=== PATIENT | male | born 1965 | race Caucasian/White ===

== ENCOUNTER 2025-05-19 05:18 | Emergency (ER) | payer OTHER ==
--- OUTSIDE RECORDS SUMMARY | 2025-05-19 05:21 | XMS REPORT | Continuity of Care Document ---
Author Name Unknown Address [address] [facility] [address] [place] [address] [facility] [place] Address [address] [facility] [address] [place] [address] Care Team Providers Care Hide And Skin Colerer Name Role Phone PCP, PATIENT DOES NOT HAVE A Primary Care Physic DR ALVINA Flores Attending Clinician Unavailable Ileana Luna MD Attending Clinician [phone] ILEANA LUNA Attending Clinician Unavailable LAVONNE VALDEZ Attending Clinician Unava ilSUMIT Rhodes Attending Clinician Unavailable Sumit Barboza Attending Clinician [phone] Unknown, Attending Attending Clinician Unavailab le UNKNOWN, ATTENDING Attending Clinician Unavailab RICO Wilson Attending Clinician Unavailable Only, Ang Db Test Attending Clinician UnavailMaci Huff RN Attending Clinician Unavailable Doctor Unassigned, Odem Attending Clinician U DR ALVINA Connell Admitting Clinician Unavailable ILEANA LUNA Admitting Clinician Unavailable Payers Payer Name Policy Type Policy Number Effective Date Expirati on Date Source [id number] 2022 00:00:00 [employer] [id number] 2022 00:00:00 2022 00:00:00 Problems Condition Name Condition Details Condition Category Status Onset Date Resolution Date Last Treatment Date Treating Clinician Comments Source Primary hypertensi on Primary hypertensi on Disease Active 2023-10 00:00: 00 [facility] Chest pain, unspecifie d type Chest pain, unspecifie d type Disease Active 2023-10 00:00: 00 [facility] Obesity (BMI 30-39.9) Obesity (BMI 30-39.9) Disease Active 2023-10 00:00: 00 [facility] No known active problems No known active problems Disease [facility] Allergies, Adverse Reactions, Alerts Allergy Name Allergy Type Status Severity Reaction(s) Onset Date Inactive Date Treating Clinician Comments Source NO KNOWN ALLERGIE S Drug Class Active [facility] Social History Social Habit Start Date Stop Date Quantity Comments [facility] use and exposure 2024-09-26 00:00:00 2024-09-26 00:00:00 Smokeless tobacco non-user [facility] History of Social function 2024-09-26 00:00:00 2024-09-26 00:00:[address] [facility] Exposure to SARS-CoV-2 (event) 2022-09-05 00:00:00 2022-09-15 14:20:[address] [facility] Sex assigned at 1965 00:00:00 1965 00:00:[address] [facility] Smoking Status Start Date Stop Date Source Tobacco smoking consumption unknown [facility] Never smoked tobacco [facility] Medications Ordered Medication Name Filled Medication Name Start Date Stop Date Current Medication? Ordering Clinician Indication Dosage Frequency Signature (SIG) Comments Components Source sulfur hexafluorid e microsphr (LUMASON) injection 5 mL 10-31 14:30: 00 10-31 14:28 :00 No [id number] 5mL 5 mL, Intravenou s, ONCE, 1 dose, On Thu10/31/24 at 0830, Routine [facility] ondansetron 4 mg disintegrat ing tablet 2021-10 00:00: 00 09-21 05:59 :00 No [id number] 4mg Take 1 tablet by mouth every 8 (eight) hours as needed for Nausea and Vomiting (N/V) for up to 5 days. [facility] Vital Signs Vital Name Observation Time Observation Value Comments S ource Oxygen saturation in Arterial blood by Pulse oximetry 2024-09-26 15:15:00 98 /min [facility] Systolic blood pressure 2024-09-26 15:15:00 138 mm[Hg] [facility] Diastolic blood pressure 2024-09-26 15:15:00 83 mm[Hg] [facility] Heart rate 2024-09-26 15:15:00 66 /min Un[facility] Body temperature 2024-09-26 15:15:[address] [facility] Respiratory rate 2024-09-26 15:15:00 17 /min [facility] Body height 2024-09-26 15:15:00 182.9 cm per pt [facility] Body weight 2024-09-26 15:15:00 121.02 kg [facility] BMI 2024-09-26 15:15:00 36.18 kg/m2 [facility] Systolic blood pressure 2022-09-15 20:30:00 135 mm[Hg] [facility] Diastolic blood pressure 2022-09-15 20:30:00 81 mm[Hg] [facility] Heart rate 2022-09-15 20:30:00 95 /min Unive [facility] Body temperature 2022-09-15 20:30:[address] [facility] Respiratory rate 2022-09-15 20:30:00 18 /min [facility] Body height 2022-09-15 20:30:00 182.9 cm [facility] Body weight 2022-09-15 20:30:00 119.704 kg [facility] BMI 2022-09-15 20:30:00 35.79 kg/m2 [facility] Oxygen saturation in Arterial blood by Pulse oximetry 2022-09-15 20:30:00 97 /min [facility] Procedures Procedure Date / Time Performed Performing Clinicia n Source HB ECG ROUTINE & RHYTHM STRIP 2024-09-26 15:19:[address] [facility] POCT MOLECULAR FLU 2022-09-15 20:33:00 Unknown, Attend ing [facility] ASSIGNMENT OF BENEFITS 2021-05-26 23:17:17 Docto r Unassigned, Odem [facility] Encounters Start Date/Time End Date/Time Encounter Type Admission Type Attending Clinicians Care Facility Care Department Encounter ID Source 2021-09-02 14:48:00 Inpatient C ALVINA [facility] [id number] [facility] 2024-11-01 00:00:00 2024-12-03 18:16:20 [facility] 1.2.840.114 350.1.13.10 4.2.7.2.686 [id number] [facility] 2024-10-31 07:50:25 2024-10-31 23:59:00 Outpatient R [facility]EREMY [facility] [id number] [facility] 2024-10-31 07:50:25 2024-10-31 23:59:00 Hospital Encounter R [facility] 1.2.840.114 350.1.13.10 4.2.7.2.686 [id number] [facility] 2024-10-20 00:00:00 2024-10-20 13:19:38 [facility] 1.2.840.114 350.1.13.10 4.2.7.2.686 [id number] [facility] 2024-10-04 00:00:00 2024-10-04 09:09:22 [facility] 1.2.840.114 350.1.13.10 4.2.7.2.686 [id number] [facility] 2024-09-26 09:20:00 2024-09-26 09:31:31 [id number] 2024-09-26 09:20:00 2024-09-26 09:31:31 Office Visit Ileana Luna [facility] 1..840.114 350.1.13.10 4.2.7.2.686 [id number] [facility] 2023-01-15 08:23:00 2023-01-15 08:23:00 Outpatient C ALVINA [facility] [id number] [facility] 2023-01-13 09:12:00 2023-01-13 10:46:00 Emergency E LAVONNE VALDEZ [facility] [address] [facility] 2022-09-15 14:20:00 2022-09-15 14:58:54 Outpatient R SUMIT WINSLOW [facility] [id number] [facility] 2022-09-15 14:20:00 2022-09-15 14:40:00 Urgent Care Sumit Winslow Unknown, Attending [facility] 1..840.114 350.1.13.10 4.2.7.2.686 [id number] [facility] 2021-09-19 16:00:00 2021-09-19 16:00:00 Outpatient R UNKNOWN, ATTENDING [facility] [id number] [facility] 2021-09-19 13:15:00 2021-09-19 13:40:36 Outpatient R RICO LOPEZ [facility] [id number] [facility] 2021-09-19 13:15:00 2021-09-19 13:30:00 Laboratory Only Only, Ang Db Test Unknown, Attending [facility] 1.2.840.114 350.1.13.10 4.2.7.2.686 [id number] [facility] 2021-08-22 12:46:00 2021-08-22 23:59:00 Outpatient C ALVINA [facility] [id number] [facility] 2021-05-28 00:00:00 2021-05-28 00:00:00 Letter (Out) Maci Cunningham [facility] 1.2.840.114 350.1.13.10 4.2.7.2.686 [id number] [facility] 2021-05-26 18:30:00 2021-05-26 18:30:00 Outpatient R UNKNOWN, ATTENDING [facility] [id number] [facility] 2021-05-26 00:00:00 2021-05-26 00:00:00 Letter (Out) Doctor Unassigned, Odem [facility] 1.2.840.114 350.1.13.10 4.2.7.2.686 [id number] [facility] 2021-05-26 00:00:00 2021-05-26 00:00:00 Orders Only Doctor Unassigned, Odem [facility] 1.2.840.114 350.1.13.10 4.2.7.2.686 [id number] [facility] Results Test Description Test Time Test Comments Results Result Co mments Source [facility] Notes Date/Time Note Provider Source 2024-10-20 12:57:18 Brian Reyes is a 59 year old male Kelsie with medical helpline calling to inform clinic that no auth is needed for the echo Ph [id number] ИРИНА Finn [facility] 2024-10-04 09:08:46 Called and left a voicemail for patient to contact us for scheduling TTE ИРИНА Bhat [facility] 2024-10-04 09:05:37 Pt states he is ready to schedule his echo. Dr. Luna has placed orders. Will forward to PSS to assist pt with scheduling echo. ИРИНА Conner RN [facility] 2024-10-04 08:43:29 Ordered [facility] 2024-10-04 08:16:19 Brian Reyes is a 59 year old male Patient would like to go ahead and have orders placed for echo now - Please advise [facility] Beba Nelson [facility] 2024-09-26 09:20:00 Addended by: ILEANA LUNA MD on: 10/04/2024 08:43 AM Modules accepted: Orders [facility]
[2025-05-19 05:33] LABS: Absolute Lymphocytes (CBC) 1.5 K/uL (0.7-4.9); Hematocrit 51.0 % (39.6-49.0); Hemoglobin 17.8 g/dL (13.6-17.9); MCH 30.5 pg (27.0-35.0); MCHC 34.9 g/dL (32.0-36.0); MCV 87.4 fL (80-100); MPV 8.7 fL (7.6-11.3); Nucleated RBC Absolute Count 0.0 (0-0); Nucleated Red Blood Cells % 0.1 % (0-0); RBC Red Blood Cell Count 5.83 M/uL (4.33-5.43); White Blood Count 8.10 thou/uL (4.3-10.9)
[2025-05-19 05:40] LABS: PT Prothrombin Time 11.9 SECONDS (10-13.0); PTT, Activated Partial Thromb 32.9 SECONDS (27.2-37.4); Protime INR 1.05
[2025-05-19] MEDS ORDERED: LABETALOL 20 MG/4ML SYRINGE IV ONE (05:47)
[2025-05-19] MEDS ORDERED: TENECTEPLASE 50 MG/10 ML VIAL IV ONE (05:47)
--- NOTE | 2025-05-19 06:05 | RAD REPORT ---
ADDENDUM #1 The negative findings were communicated with Dr. Faustino Thompson at 05/19/2025 6:03 AM CDT. Electronically signed by: Joan Travis MD 05/19/2025 06:31 AM CDT RP End of Addendum CT HEAD WITHOUT IV CONTRAST, CT HEAD ANGIOGRAPHY WITH IV CONTRAST, CT NECK ANGIOGRAPHY WITH IV CONTRA ST CLINICAL INDICATION: Stroke alert COMPARISON: None. TECHNIQUE: CT HEAD: CT images of the head were obtained without intravenous contrast. Multiplanar reformats were provided. CTA HEAD/NECK: Following intravenous contrast administration, helical CT images were obtained through the head and neck during the arterial phase. Multiplanar 3D/MIP and MPR reconstructions were provided. Dose lowering technique(s) such as automated exposure control, iterative reconstruction, mA and/or KV adjustment for patient's size was utilized for this examination. FINDINGS: CT HEAD: There is no acute intracranial hemorrhage, acute territorial infarct, mass effect, midline shift or e xtra-axial collection. Ventricles are normal in size for patient's age. No acute calvarial fracture. Paranasal sinuses, mastoid air cells and middle ear cavities are clear. Orbits are unremarkable. CTA HEAD: POSTERIOR CIRCULATION: Vertebral artery dominance: Codominant Right vertebral artery: No significant stenosis. No aneurysm. Left vertebral artery: No significant stenosis. No aneurysm. Basilar artery: No significant stenosis. No aneurysm. Posterior cerebral arteries: No significant stenosis. No aneurysm. Superior cerebellar arteries: Unremarkable ANTERIOR CIRCULATION: Right ICA: No significant stenosis. No aneurysm. Right MCA: No significant stenosis. No aneurysm. Right SHERYL: No significant stenosis. No aneurysm. Left ICA: No significant stenosis. No aneurysm. Left MCA: No significant stenosis. No aneurysm. Left SHERYL: No significant stenosis. No aneurysm. CTA NECK: Aortic arch: Aortic arch and proximal major branching vessels are not included in [id number]-[id number]. Vertebral arteries: Preforaminal segments are not included in [id number]. No hemodynamically signi ficant stenosis. No aneurysm or dissection. Right CCA: No hemodynamically significant stenosis. No aneurysm or dissection. Right ICA: No hemodynamically significant stenosis. No aneurysm or dissection. Right ECA: No aneurysm or dissection. Left CCA: No hemodynamically significant stenosis. No aneurysm or dissection. Left ICA: No hemodynamically significant stenosis. No aneurysm or dissection. Left ECA: No aneurysm or dissection. Measurement of carotid stenosis is based on criteria described in the [place] Symptomatic Naik tid Endarterectomy Trial (NASCET). NASCET criteria for estimating stenosis compares the normal distal ICA diameter with the standard proximal ICA diameter. UPPER CHEST: Unremarkable. BONES: No acute or destructive osseous lesion. Status post previous cervical fusion of C5-6. SOFT TISSUES: Unremarkable. OTHER: None. IMPRESSION: 1. No acute intracranial abnormality. 2. Negative CTA of the head and neck. Electronically signed by: Joan Travis MD 05/19/2025 06:00 AM CDT RP Due to temporary technical issues with the PACS/[employer] reporting system, reports are being ifrah d by the in-house radiologist without review as a courtesy to ensure prompt reporting the interpreting radiologist is fully responsible for the content of the report. Transcribed Date/Time: 05/19/2025 6:35 AM
--- NOTE | 2025-05-19 06:05 | RAD REPORT ---
ADDENDUM #1 The negative findings were communicated with Dr. Faustino Thompson at 05/19/2025 6:03 AM CDT. Electronically signed by: Joan Travis MD 05/19/2025 06:31 AM CDT RP End of Addendum CT HEAD WITHOUT IV CONTRAST, CT HEAD ANGIOGRAPHY WITH IV CONTRAST, CT NECK ANGIOGRAPHY WITH IV CONTRA ST CLINICAL INDICATION: Stroke alert COMPARISON: None. TECHNIQUE: CT HEAD: CT images of the head were obtained without intravenous contrast. Multiplanar reformats were provided. CTA HEAD/NECK: Following intravenous contrast administration, helical CT images were obtained through the head and neck during the arterial phase. Multiplanar 3D/MIP and MPR reconstructions were provided. Dose lowering technique(s) such as automated exposure control, iterative reconstruction, mA and/or KV adjustment for patient's size was utilized for this examination. FINDINGS: CT HEAD: There is no acute intracranial hemorrhage, acute territorial infarct, mass effect, midline shift or e xtra-axial collection. Ventricles are normal in size for patient's age. No acute calvarial fracture. Paranasal sinuses, mastoid air cells and middle ear cavities are clear. Orbits are unremarkable. CTA HEAD: POSTERIOR CIRCULATION: Vertebral artery dominance: Codominant Right vertebral artery: No significant stenosis. No aneurysm. Left vertebral artery: No significant stenosis. No aneurysm. Basilar artery: No significant stenosis. No aneurysm. Posterior cerebral arteries: No significant stenosis. No aneurysm. Superior cerebellar arteries: Unremarkable ANTERIOR CIRCULATION: Right ICA: No significant stenosis. No aneurysm. Right MCA: No significant stenosis. No aneurysm. Right SHERYL: No significant stenosis. No aneurysm. Left ICA: No significant stenosis. No aneurysm. Left MCA: No significant stenosis. No aneurysm. Left SHERYL: No significant stenosis. No aneurysm. CTA NECK: Aortic arch: Aortic arch and proximal major branching vessels are not included in hmfub-vi-ygyr. Vertebral arteries: Preforaminal segments are not included in jqshj-ke-xtmp. No hemodynamically signi ficant stenosis. No aneurysm or dissection. Right CCA: No hemodynamically significant stenosis. No aneurysm or dissection. Right ICA: No hemodynamically significant stenosis. No aneurysm or dissection. Right ECA: No aneurysm or dissection. Left CCA: No hemodynamically significant stenosis. No aneurysm or dissection. Left ICA: No hemodynamically significant stenosis. No aneurysm or dissection. Left ECA: No aneurysm or dissection. Measurement of carotid stenosis is based on criteria described in the [place] Symptomatic Naik tid Endarterectomy Trial (NASCET). NASCET criteria for estimating stenosis compares the normal distal ICA diameter with the standard proximal ICA diameter. UPPER CHEST: Unremarkable. BONES: No acute or destructive osseous lesion. Status post previous cervical fusion of C5-6. SOFT TISSUES: Unremarkable. OTHER: None. IMPRESSION: 1. No acute intracranial abnormality. 2. Negative CTA of the head and neck. Electronically signed by: Joan Travis MD 05/19/2025 06:00 AM CDT RP Due to temporary technical issues with the PACS/[employer] reporting system, reports are being ifrah d by the in-house radiologist without review as a courtesy to ensure prompt reporting the interpreting radiologist is fully responsible for the content of the report. Transcribed Date/Time: 05/19/2025 6:35 AM
[2025-05-19 06:07] LABS: Anion Gap 7.1 mEq/L (5.0-15.0); BUN Blood Urea Nitrogen 15.0 mg/dL (7-18); Glucose Level 116.0 mg/dL (74-106); Potassium 4.1 mEq/L (3.5-5.1); Troponin High Sensitivity 3.7 pg/mL (<58.9)
--- NOTE | 2025-05-19 06:26 | EDPHYS ---
Physician Documentation [facility] Name: Brian Ivory Age: 59 yrs Sex: Male : 1965 Arrival Date: 05/19/2025 Time: :18 Bed 2 Private MD: ED Physician Faustino Thompson HPI: 05/19 05:36 This 59 yrs old Male presents to ER via Unassigned with complaints of weakness. 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 Patient reports does not feel right and still has left arm and left leg weakness. No numbness. No speech problem. No vision trouble. Patient states sudden onset of symptoms approximately 1 hour prior to arrival. Historical: - Allergies: 05:52 No Known Allergies; bm8 - Home Meds: 05:52 amlodipine-valsartan oral 1 tab daily [Active]; bm8 - PMHx: 05:52 Hypertensive disorder; bm8 - PSHx: 05:52 None; bm8 - Immunization history:: Adult Immunizations up to date. - Infectious Disease History:: Denies. - Family history:: not pertinent. - Social history:: Smoking status: Patient denies any tobacco usage or history of. - Hospitalizations: : No recent hospitalization is reported. ROS: 05:36 Constitutional: Negative for fever, chills, and weight loss, Neck: Negative for injury, rn pain, and swelling, Cardiovascular: Negative for chest pain, palpitations, and edema, Respiratory: Negative for shortness of breath, cough, wheezing, and pleuritic chest pain, Abdomen/GI: Negative for abdominal pain, nausea, vomiting, diarrhea, and constipation, Back: Negative for injury and pain, MS/Extremity: Negative for injury and deformity, Skin: Negative for injury, rash, and discoloration, Neuro: Positive for left-sided weakness, negative for numbness Exam: 05:36 Constitutional: This is a well developed, well nourished patient who is awake, alert, rn and in no acute distress. Head/Face: Normocephalic, atraumatic. Eyes: Pupils equal round and reactive to light, extra-ocular motions intact. Cardiovascular: Regular rate and rhythm. No pulse deficits. Respiratory: No increased work of breathing, no retractions or nasal flaring. Abdomen/GI: Soft, non-tender MS/ Extremity: Pulses equal, no cyanosis. Neurovascular intact. Full, normal range of motion. Equal circumference. Neuro: Awake and alert, GCS 15, oriented to person, place, time, and situation. Cranial nerves II-XII grossly intact. Left upper extremity and left lower extremity drift with weakness but does not hit the bed. Normal sensation throughout. Normal right sided strength. 06:00 ECG was reviewed by the Attending Physician. rn Vital Signs: 05:20 BP 186 / 112; Pulse 80; Resp 18; Temp 98.5; Pulse Ox 99% ; Weight 117.03 kg; Height 6 bm8 ft. 1 in. ; Pain 0/10; 05:58 BP 144 / 87; rn 06:30 BP 136 / 95; Pulse 67; Resp 17; Temp 98.5; Pulse Ox 97% ; Pain 0/10; bm8 06:33 BP 136 / 95; rn 06:45 BP 140 / 88; Pulse 70; Resp 18; Temp 98.5; Pulse Ox 98% ; Pain 0/10; bm8 07:00 BP 129 / 88; Pulse 69; Resp 18; Temp 98.5; Pulse Ox 98% ; Pain 0/10; bm8 07:15 BP 128 / 85; Pulse 64; Resp 17; Temp 98.5; Pulse Ox 99% ; Pain 0/10; bm8 05:20 Body Mass Index 34.04 (117.03 kg, 185.42 cm) bm8 05:20 Pain Scale: Adult bm8 06:30 Pain Scale: Adult bm8 06:45 Pain Scale: Adult bm8 07:00 Pain Scale: Adult bm8 07:15 Pain Scale: Adult bm8 NIH Stroke Scale Scores: 05:22 NIHSS Score: 1 bm8 05:36 NIHSS Score: 2 rn 06:30 NIHSS Score: 0 bm8 06:45 NIHSS Score: 0 bm8 07:00 NIHSS Score: 0 bm8 07:15 NIHSS Score: 0 bm8 Alfa Coma Score: 05:22 Eye Response: spontaneous(4). Motor Response: obeys commands(6). Verbal Response: bm8 oriented(5). Total: 15. 06:30 Eye Response: spontaneous(4). Motor Response: obeys commands(6). Verbal Response: bm8 oriented(5). Total: 15. 06:30 Eye Response: spontaneous(4). Motor Response: obeys commands(6). Verbal Response: bm8 oriented(5). Total: 15. 06:45 Eye Response: spontaneous(4). Motor Response: obeys commands(6). Verbal Response: bm8 oriented(5). Total: 15. 07:00 Eye Response: spontaneous(4). Motor Response: obeys commands(6). Verbal Response: bm8 oriented(5). Total: 15. 07:15 Eye Response: spontaneous(4). Motor Response: obeys commands(6). Verbal Response: bm8 oriented(5). Total: 15. MDM: 05:20 Medical Screening Exam initiated rn 06:01 Discussion of test interpretation with radiology: I had a discussion with cath lab radiology technician regarding a test interpretation. Case discussed with radiologist, ct head negative for acute hemorrhage. 06:03 ED course: Had a long discussion with patient and spouse regarding TNKase. They are rn deciding right now and being consented. Repeat blood pressure was 144/87. Still has left-sided weakness. Given sudden onset and within TNK window decision made to give TNK. 06:14 ED course: Delay of TNKase administration due to time to read CT as well as family and rn patient took a while to discuss TNKase and finally agreed. Patient, spouse, and children all agree to receive TNKase and understand risks and benefits. . 06:15 TNKase (Tenecteplase) Screening: Indications: Definite evidence of stroke, ischemic, rn embolic, or hypertensive: Yes. Treatment will start within 4.5 hours onset of symptoms: Yes. No evidence of intracranial hemorrhage or CT of head and no evidence of peripheral hemorrhage or recent CVA: Yes. Consent for thrombolytic therapy: Yes. 06:24 Differential diagnosis: CVA, TIA, metabolic disorder. Data reviewed: vital signs, rn nurses notes, lab test result(s), EKG, radiologic studies, CT scan, and as a result, I will admit patient. Consideration of Admission/Observation Patient was admitted/placed on observation. Escalation of care including admission/observation considered. Independent interpretation of the following test(s) in the Emergency Department CT Scan: My interpretation is CT head images negative for acute hemorrhage per my interpretation. Care significantly affected by the following chronic conditions: Hypertension. Counseling: I had a detailed discussion with the patient and/or guardian regarding the historical points, exam findings, and any diagnostic results supporting the discharge/admit diagnosis, lab results, radiology results, the need for further work-up and treatment in the hospital, the need to transfer to another facility, for higher level of care, [facility] does not immediately have the required specialist. 06:27 Test considered but Not performed: MRI: MRI not available. rn 05/19 05:23 Order name: glucometer results - FOR PT WITH NO ID; Complete Time: 05:57 vc1 05/19 05:28 Order name: Basic Metabolic Panel; Complete Time: 06:31 rn 05/19 05:28 Order name: CBC with Diff rn 05/19 05:28 Order name: High Sensitivity Troponin; Complete Time: 06:31 rn 05/19 05:28 Order name: Protime (+inr); Complete Time: 05:57 rn 05/19 05:28 Order name: Ptt, Activated; Complete Time: 05:57 rn 05/19 06:05 Order name: CREATININE WHOLE BLOOD; Complete Time: 06:31 EDMS 05/19 05:28 Order name: CT Head Angio rn 05/19 05:28 Order name: CT Neck Angio rn 05/19 05:28 Order name: CT Stroke Brain w/o Contrast rn 05/19 05:28 Order name: Stroke CXR 1 View rn 05/19 05:28 Order name: Accucheck; Complete Time: 06:20 rn 05/19 05:28 Order name: Cardiac monitoring; Complete Time: 06:20 rn 05/19 05:28 Order name: EKG - Nurse/Tech; Complete Time: 05:36 rn 05/19 05:28 Order name: IV Saline Lock; Complete Time: 06:20 rn 05/19 05:28 Order name: Labs collected and sent; Complete Time: 06:21 rn 05/19 05:28 Order name: NPO; Complete Time: 06:21 rn 05/19 05:28 Order name: O2 Per Protocol; Complete Time: 06:21 rn 05/19 05:28 Order name: O2 Sat Monitoring; Complete Time: 06:21 rn 05/19 05:28 Order name: Stroke Swallow Screen; Complete Time: 06:21 rn EC:00 Rate is 80 beats/min. Rhythm is regular. QRS Hurst is Normal. NE interval is normal. QRS rn interval is normal. QT interval is normal. No Q waves. T waves are Normal. No ST changes noted. Clinical impression: Normal ECG. Interpreted by me. Reviewed by me. Administered Medications: 05:45 Not Given (BP improved): labetalol5 mg IV at calculated rate once rn 06:18 Drug: TNK FOR STROKE - Tenecteplase IV (Administer 10 ml NS flush BEFORE and bm8 AFTER tenecteplase) 0.25 mg/kg IV at per protocol once; 0.25mg/kg, MAX DOSE 25 mg, IVP over 5 seconds {Co-Signature: vc1 (Edith Collins RN).} Route: IV; Rate: per protocol; Site: left antecubital; 07:23 Follow up: Response: No adverse reaction; IV Status: Completed infusion bm8 Point of Care Testing: Blood Glucose: 05:20 Blood Glucose: 112 mg/dL; bm8 Ranges: Critical Glucose Levels:Adult <50 mg/dl or >400 mg/dl <40 mg/dl or >180 mg/dl Disposition Summary: 05/19/25 06:25 Transfer Ordered Notes: Transfer Location: [facility] rn Reason: Higher level of care rn Condition: Stable rn Problem: new rn Symptoms: are unchanged rn Accepting Physician: (05/19/25 07:29) bm8 Diagnosis - Weakness rn - Cerebral infarction, unspecified rn Forms: - Medication Reconciliation Form rn - SBAR form recovery room rn time excluding procedures: 06:24 Critical care time: Bedside Care: 30 minutes, Family Intervention: 5 minutes. Total rn time: 35 minutes NIH Stroke Scale - NIH Stroke Score Date: 05/19/2025 Time: 05:22 Total Score = 1 10. Dysarthria (speech clarity - read or repeat words) - 0(Normal) 11. Extinction and Inattention (visual/tactile/auditory/spatial/personal) - 0(No abnormality) 1a. Level of Consciousness (LOC) - 0(Alert) 1b. Level of Consciousness (LOC) (Month \T\ Age) - 0(Both) 1c. LOC Commands (Open \T\ Closes Eyes/Salad Counter Attendant) - 0(Both) 2. Best Gaze (Lateral Gaze Paresis) - 0(Normal) 3. Visual Field Loss - 0(No visual loss) 4. Facial Palsy - 0(Normal) 5a. Left Arm: Motor (10-second hold) - 0(No drift) 5b. Right Arm: Motor (10-second hold) - 0(No drift) 6a. Left Leg: Motor (5-second hold - always test supine) - 0(No drift) 6b. Right Leg: Motor (5-second hold - always test supine) - 0(No drift) 7. Limb Ataxia (finger/nose \T\ heel/cheung - test with eyes open) - 0(Absent) 8. Sensory Loss (pinprick arms/legs/face) - 1(Mild to moderate loss) 9. Best Language: Aphasia (description/naming/reading) - 0(No aphasia) Initials: bm8 NIH Stroke Scale - NIH Stroke Score Date: 05/19/2025 Time: 05:36 Total Score = 2 10. Dysarthria (speech clarity - read or repeat words) - 0(Normal) 11. Extinction and Inattention (visual/tactile/auditory/spatial/personal) - 0(No abnormality) 1a. Level of Consciousness (LOC) - 0(Alert) 1b. Level of Consciousness (LOC) (Month \T\ Age) - 0(Both) 1c. LOC Commands (Open \T\ Closes Eyes/Salad Counter Attendant) - 0(Both) 2. Best Gaze (Lateral Gaze Paresis) - 0(Normal) 3. Visual Field Loss - 0(No visual loss) 4. Facial Palsy - 0(Normal) 5a. Left Arm: Motor (10-second hold) - 1(Drift) 5b. Right Arm: Motor (10-second hold) - 0(No drift) 6a. Left Leg: Motor (5-second hold - always test supine) - 1(Drift) 6b. Right Leg: Motor (5-second hold - always test supine) - 0(No drift) 7. Limb Ataxia (finger/nose \T\ heel/cheung - test with eyes open) - 0(Absent) 8. Sensory Loss (pinprick arms/legs/face) - 0(Normal) 9. Best Language: Aphasia (description/naming/reading) - 0(No aphasia) Initials: rn NIH Stroke Scale - NIH Stroke Score Date: 05/19/2025 Time: 06:30 Total Score = 0 10. Dysarthria (speech clarity - read or repeat words) - 0(Normal) 11. Extinction and Inattention (visual/tactile/auditory/spatial/personal) - 0(No abnormality) 1a. Level of Consciousness (LOC) - 0(Alert) 1b. Level of Consciousness (LOC) (Month \T\ Age) - 0(Both) 1c. LOC Commands (Open \T\ Closes Eyes/Salad Counter Attendant) - 0(Both) 2. Best Gaze (Lateral Gaze Paresis) - 0(Normal) 3. Visual Field Loss - 0(No visual loss) 4. Facial Palsy - 0(Normal) 5a. Left Arm: Motor (10-second hold) - 0(No drift) 5b. Right Arm: Motor (10-second hold) - 0(No drift) 6a. Left Leg: Motor (5-second hold - always test supine) - 0(No drift) 6b. Right Leg: Motor (5-second hold - always test supine) - 0(No drift) 7. Limb Ataxia (finger/nose \T\ heel/cheung - test with eyes open) - 0(Absent) 8. Sensory Loss (pinprick arms/legs/face) - 0(Normal) 9. Best Language: Aphasia (description/naming/reading) - 0(No aphasia) Initials: bm8 NIH Stroke Scale - NIH Stroke Score Date: 05/19/2025 Time: 06:45 Total Score = 0 10. Dysarthria (speech clarity - read or repeat words) - 0(Normal) 11. Extinction and Inattention (visual/tactile/auditory/spatial/personal) - 0(No abnormality) 1a. Level of Consciousness (LOC) - 0(Alert) 1b. Level of Consciousness (LOC) (Month \T\ Age) - 0(Both) 1c. LOC Commands (Open \T\ Closes Eyes/Salad Counter Attendant) - 0(Both) 2. Best Gaze (Lateral Gaze Paresis) - 0(Normal) 3. Visual Field Loss - 0(No visual loss) 4. Facial Palsy - 0(Normal) 5a. Left Arm: Motor (10-second hold) - 0(No drift) 5b. Right Arm: Motor (10-second hold) - 0(No drift) 6a. Left Leg: Motor (5-second hold - always test supine) - 0(No drift) 6b. Right Leg: Motor (5-second hold - always test supine) - 0(No drift) 7. Limb Ataxia (finger/nose \T\ heel/cheung - test with eyes open) - 0(Absent) 8. Sensory Loss (pinprick arms/legs/face) - 0(Normal) 9. Best Language: Aphasia (description/naming/reading) - 0(No aphasia) Initials: [facility] NIH Stroke Scale - NIH Stroke Score Date: 05/19/2025 Time: 07:00 Total Score = 0 10. Dysarthria (speech clarity - read or repeat words) - 0(Normal) 11. Extinction and Inattention (visual/tactile/auditory/spatial/personal) - 0(No abnormality) 1a. Level of Consciousness (LOC) - 0(Alert) 1b. Level of Consciousness (LOC) (Month \T\ Age) - 0(Both) 1c. LOC Commands (Open \T\ Closes Eyes/Salad Counter Attendant) - 0(Both) 2. Best Gaze (Lateral Gaze Paresis) - 0(Normal) 3. Visual Field Loss - 0(No visual loss) 4. Facial Palsy - 0(Normal) 5a. Left Arm: Motor (10-second hold) - 0(No drift) 5b. Right Arm: Motor (10-second hold) - 0(No drift) 6a. Left Leg: Motor (5-second hold - always test supine) - 0(No drift) 6b. Right Leg: Motor (5-second hold - always test supine) - 0(No drift) 7. Limb Ataxia (finger/nose \T\ heel/hceung - test with eyes open) - 0(Absent) 8. Sensory Loss (pinprick arms/legs/face) - 0(Normal) 9. Best Language: Aphasia (description/naming/reading) - 0(No aphasia) Initials: 8 NIH Stroke Scale - NIH Stroke Score Date: 05/19/2025 Time: 07:15 Total Score = 0 10. Dysarthria (speech clarity - read or repeat words) - 0(Normal) 11. Extinction and Inattention (visual/tactile/auditory/spatial/personal) - 0(No abnormality) 1a. Level of Consciousness (LOC) - 0(Alert) 1b. Level of Consciousness (LOC) (Month \T\ Age) - 0(Both) 1c. LOC Commands (Open \T\ Closes Eyes/Salad Counter Attendant) - 0(Both) 2. Best Gaze (Lateral Gaze Paresis) - 0(Normal) 3. Visual Field Loss - 0(No visual loss) 4. Facial Palsy - 0(Normal) 5a. Left Arm: Motor (10-second hold) - 0(No drift) 5b. Right Arm: Motor (10-second hold) - 0(No drift) 6a. Left Leg: Motor (5-second hold - always test supine) - 0(No drift) 6b. Right Leg: Motor (5-second hold - always test supine) - 0(No drift) 7. Limb Ataxia (finger/nose \T\ heel/cheung - test with eyes open) - 0(Absent) 8. Sensory Loss (pinprick arms/legs/face) - 0(Normal) 9. Best Language: Aphasia (description/naming/reading) - 0(No aphasia) Initials: shanya Signatures: Dispatcher [employer] EDMS Faustino Thompson MD MD rn McDonald, Brad, RN RN bm8 CalcEdith laureano RN vc1 Corrections: (The following items were deleted from the chart) 05:29 05:29 Head Angio+CT.RAD.BRZ ordered. EDSD EDMS 05:29 05:29 Neck Angio+CT.RAD.BRZ ordered. EDSD EDSD 05:29 05:29 CT-STROKE BRAIN W/O CONTRAST+CT.RAD.BRZ ordered. EDSD EDMS 05:29 05:29 Chest Single View+RAD.RAD.BRZ ordered. 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 Patient reports does not feel right and still has left arm and left leg weakness. No numbness. No speech problem. No vision trouble.. rn : 06:25 Dr. peter [email or web address]
--- NOTE | 2025-05-19 06:26 | ER ---
Nurse's Notes [facility] Name: Brian Ivory Age: 59 yrs Sex: Male : 1965 Arrival Date: 05/19/2025 Time: 05:18 Bed 2 Private MD: Diagnosis: Weakness;Cerebral infarction, unspecified Presentation: 05/19 05:20 Chief complaint: Patient states: I was on my way to work and wasn't feeling good at bm8 all. My left side feels weak and numb, my back where my kidneys are is hurting too. 05:20 Coronavirus screen: At this time, the client does not indicate any symptoms associated bm8 with coronavirus-19. Ebola Screen: Patient negative for fever greater than or equal to 101.5 degrees Fahrenheit, and additional compatible Ebola Virus Disease symptoms Patient denies exposure to infectious person. Patient denies travel to an Ebola-affected area in the 21 days before illness onset. No symptoms or risks identified at this time. Initial Sepsis Screen: Does the patient meet any 2 criteria? No. Patient's initial sepsis screen is negative. Does the patient have a suspected source of infection? No. Patient's initial sepsis screen is negative. Risk Assessment: Do you want to hurt yourself or someone else? Patient reports no desire to harm self or others. Onset of symptoms was May 19, 2025 at 04:15. 05:20 Method Of Arrival: Ambulatory bm8 05:20 Acuity: EVELIN 2 bm8 05:21 No acute neurological deficit is noted. Pre-hospital glucose is not applicable to this bm8 patient. Triage Assessment: 05:20 General: Appears in no apparent distress. comfortable, Behavior is calm, cooperative, bm8 appropriate for age. 05:20 Pain: Denies pain. EENT: No deficits noted. No signs and/or symptoms were reported bm8 regarding the EENT system. Neuro: Level of Consciousness is awake, alert, obeys commands, Oriented to person, place, time, situation, Appropriate for age Application Security Developer are equal bilaterally Moves all extremities. Full function Gait is steady, Speech is normal, Facial symmetry appears normal, Pupils are PERRLA, Pupil Size: 4mm Numbness in left arm and left leg. Cardiovascular: Denies chest pain, Capillary refill < 3 seconds in bilateral fingers Patient's skin is warm and dry. Respiratory: Airway is patent Respiratory effort is even, unlabored, Respiratory pattern is regular, symmetrical, Breath sounds are clear bilaterally. GI: Abdomen is round non-distended, Bowel sounds present X 4 quads. Reports upper abdominal pain. : Reports pain in bilateral flank(s). Derm: No signs and/or symptoms reported regarding the dermatologic system. Musculoskeletal: No signs and/or symptoms reported regarding the musculoskeletal system. 05:20 The onset of the patients symptoms was May 19, 2025 at 04:15. bm8 Stroke Activation: Symptom onset < 3 hours Physician: ED Attending; Name: KAILASH; Notified At: ; Arrived At: Physician: Mid-Level Provider; Name: ; Notified At: ; Arrived At: Physician: [not used]; Name: ; Notified At: ; Arrived At: Physician: [not used]; Name: ; Notified At: ; Arrived At: Physician: [not used]; Name: ; Notified At: ; Arrived At: Historical: - Allergies: 05:52 No Known Allergies; bm8 - Home Meds: 05:52 amlodipine-valsartan oral 1 tab daily [Active]; bm8 - PMHx: 05:52 Hypertensive disorder; bm8 - PSHx: 05:52 None; bm8 - Immunization history:: Adult Immunizations up to date. - Infectious Disease History:: Denies. - Family history:: not pertinent. - Social history:: Smoking status: Patient denies any tobacco usage or history of. - Hospitalizations: : No recent hospitalization is reported. Screenin:22 [facility] ED Fall Risk Assessment (Adult) History of falling in the last 3 months, bm8 including since admission No falls in past 3 months (0 pts) Confusion or Disorientation No (0 pts) Intoxicated or Sedated No (0 pts) Impaired Gait No (0 pts) Mobility Assist Device Used No (0 pt) Altered Elimination No (0 pt) Score/Fall Risk Level 0 - 2 = Low Risk Oriented to surroundings, Maintained a safe environment, Educated pt \T\ family on fall prevention, incl call for assistance when getting out of bed, Assessed \T\ reinforced patient's understanding of fall precautions, Hourly rounding (assess needs \T\ fall precautionary measures) done, Used ambulatory aids as needed (educated on \T\ assisted with), Used gait belt as appropriate. Abuse screen: Denies threats or abuse. Nutritional screening: No deficits noted. Tuberculosis screening: No symptoms or risk factors identified. Assessment: 05:22 VAN Scoring: Arm Drift: Patients demonstrates NO arm weakness. Patient is VAN Negative. bm8 Visual Disturbance: No visual disturbance noted. Aphasia: No aphasia noted. Neglect: No neglect noted. Thelma Swallow Protocol Exclusion Criteria: Unable to remain alert for testing: No NPO for medical/surgical reason by provider order No Tracheostomy tube present No No thin liquids due to preexisting dysphagia/baseline modified diet thickened liquids No Exclusion Criteria Result: Proceed Brief Cognitive Screen What is your name? Normal, Where are you right now? Normal, What year is it? Normal. Oral Mechanism Examination Facial Symmetry: Normal, Motion: Normal, Lip Closure: Normal, Oral Mechanism Result: Normal. 3 oz Water Swallow Challenge: Pt able to drink all water without stopping, coughing, choking or throat clearing: Yes Result: PASS MD Notified: Faustino Thompson MD. TNKase (Tenecteplase) Screening: Indications: Definite evidence of stroke, ischemic, embolic, or hypertensive: Yes. Treatment will start within 4.5 hours onset of symptoms: Yes. 06:00 GI: Abd is soft and non tender. bm8 06:30 Reassessment: Patient appears in no apparent distress at this time. No changes from bm8 previously documented assessment. Patient is alert, oriented x 3, equal unlabored respirations, skin warm/dry/pink. Patient denies pain at this time. Patient states feeling better. Patient states symptoms have improved. 06:45 Reassessment: Patient appears in no apparent distress at this time. Patient and/or bm8 family updated on plan of care and expected duration. Pain level reassessed. Patient is alert, oriented x 3, equal unlabored respirations, skin warm/dry/pink. Patient denies pain at this time. Patient states feeling better. Patient states symptoms have improved. 07:00 Reassessment: Patient appears in no apparent distress at this time. No changes from bm8 previously documented assessment. Patient and/or family updated on plan of care and expected duration. Pain level reassessed. Patient is alert, oriented x 3, equal unlabored respirations, skin warm/dry/pink. Patient denies pain at this time. Patient states feeling better. Patient states symptoms have improved. 07:07 Reassessment: Patient and/or family updated on plan of care and expected duration. Pain ap3 level reassessed. Patient is alert, oriented x 3, equal unlabored respirations, skin warm/dry/pink. General: Appears in no apparent distress. Behavior is calm, cooperative, appropriate for age. Neuro: Level of Consciousness is awake, alert, obeys commands, Oriented to person, place, time, situation, Appropriate for age Application Security Developer are equal bilaterally. Respiratory: Airway is patent Respiratory effort is even, unlabored, Respiratory pattern is regular, symmetrical. 07:08 Reassessment: attempted to call report to [facility] ICU, was unable due to them getting bm8 floor report right now. 07:15 Reassessment: Patient appears in no apparent distress at this time. No changes from bm8 previously documented assessment. Patient and/or family updated on plan of care and expected duration. Pain level reassessed. Patient is alert, oriented x 3, equal unlabored respirations, skin warm/dry/pink. pt transferred out, Report to Rosa Maria, RN at [facility] Patient denies pain at this time. Patient states feeling better. Patient states symptoms have improved. Vital Signs: 05:20 BP 186 / 112; Pulse 80; Resp 18; Temp 98.5; Pulse Ox 99% ; Weight 117.03 kg; Height 6 bm8 ft. 1 in. ; Pain 0/10; 05:58 BP 144 / 87; rn 06:30 BP 136 / 95; Pulse 67; Resp 17; Temp 98.5; Pulse Ox 97% ; Pain 0/10; bm8 06:33 BP 136 / 95; rn 06:45 BP 140 / 88; Pulse 70; Resp 18; Temp 98.5; Pulse Ox 98% ; Pain 0/10; bm8 07:00 BP 129 / 88; Pulse 69; Resp 18; Temp 98.5; Pulse Ox 98% ; Pain 0/10; bm8 07:15 BP 128 / 85; Pulse 64; Resp 17; Temp 98.5; Pulse Ox 99% ; Pain 0/10; bm8 05:20 Body Mass Index 34.04 (117.03 kg, 185.42 cm) bm8 05:20 Pain Scale: Adult bm8 06:30 Pain Scale: Adult bm8 06:45 Pain Scale: Adult bm8 07:00 Pain Scale: Adult bm8 07:15 Pain Scale: Adult bm8 [place] Coma Score: 05:22 Eye Response: spontaneous(4). Motor Response: obeys commands(6). Verbal Response: bm8 oriented(5). Total: 15. 06:30 Eye Response: spontaneous(4). Motor Response: obeys commands(6). Verbal Response: bm8 oriented(5). Total: 15. 06:30 Eye Response: spontaneous(4). Motor Response: obeys commands(6). Verbal Response: bm8 oriented(5). Total: 15. 06:45 Eye Response: spontaneous(4). Motor Response: obeys commands(6). Verbal Response: bm8 oriented(5). Total: 15. 07:00 Eye Response: spontaneous(4). Motor Response: obeys commands(6). Verbal Response: bm8 oriented(5). Total: 15. 07:15 Eye Response: spontaneous(4). Motor Response: obeys commands(6). Verbal Response: bm8 oriented(5). Total: 15. NIH Stroke Scale Scores: 05:22 NIHSS Score: 1 bm8 05:36 NIHSS Score: 2 rn 06:30 NIHSS Score: 0 bm8 06:45 NIHSS Score: 0 bm8 07:00 NIHSS Score: 0 bm8 07:15 NIHSS Score: 0 bm8 ED Course: 05:20 Patient arrived in ED. [email or web address] 05:20 Faustino Thompson MD is Attending Physician. rn 05:20 Arm band placed on right wrist. bm8 05:20 No provider procedures requiring assistance completed. Initial lab(s) drawn, by ut bm8 sent to lab. EKG done, by ED staff, reviewed by Faustino Thompson MD. 05:20 Inserted saline lock: 18 gauge in left antecubital area, using aseptic technique. Blood bm8 collected. Flushed with 10 mL NS. Patient maintains SpO2 saturation greater than 95% on room air. 05:22 Edith Collins RN is Primary Nurse. vc1 05:22 Patient has correct armband on for positive identification. Placed in gown. Bed in low bm8 position. Call light in reach. Side rails up X2. Adult w/ patient. Client placed on continuous cardiac and pulse oximetry monitoring. NIBP monitoring applied. monitoring analyst on. Pulse ox on. NIBP on. Door closed. Warm blanket given. Pillow given. Verbal reassurance given. Head of bed elevated. 05:51 Triage completed. bm8 05:53 CT Head Angio In Process Unspecified. EDMS 05:53 CT Neck Angio In Process Unspecified. EDMS 05:53 CT Stroke Brain w/o Contrast In Process Unspecified. EDMS 06:07 Stroke CXR 1 View In Process Unspecified. EDMS 06:10 Inserted saline lock: 20 gauge in right hand, using aseptic technique. Flushed with 10 bm8 mL NS. 06:19 initiated a transfer with Kendell from the [facility]. eb 06:30 Provided Education on: Procedure Consent, TNK CONSENT SIGNED BY PT. bm8 06:39 connected the neuro director of diversity and inclusion fire control technician g for [facility] with Dr. Thompson for patient eb transfer consulltation. 06:41 administrative approval given by Kendell Blue / patient has been accepted to [facility] [address] [place] [address] bed 9/ Dr. Mich Nails has accepted the patient in transfer/ report to be called to [phone]. 07:00 Report given to Briseida RN. bm8 07:15 Patient transferred, IV remains in place. bm8 Administered Medications: 05:45 Not Given (BP improved): labetalol5 mg IV at calculated rate once rn 06:18 Drug: TNK FOR STROKE - Tenecteplase IV (Administer 10 ml NS flush BEFORE and bm8 AFTER tenecteplase) 0.25 mg/kg IV at per protocol once; 0.25mg/kg, MAX DOSE 25 mg, IVP over 5 seconds {Co-Signature: vc1 (Edith Collins RN).} Route: IV; Rate: per protocol; Site: left antecubital; 07:23 Follow up: Response: No adverse reaction; IV Status: Completed infusion bm8 Medication: 05:22 VIS not applicable for this client. bm8 Point of Care Testing: Blood Glucose: 05:20 Blood Glucose: 112 mg/dL; bm8 Ranges: Outcome: 06:25 ER care complete, transfer ordered by . rn 07:15 Transferred by ground EMS to [facility], Transfer form completed. bm8 X-rays sent w/ patient. 07:15 Condition: stable 07:15 Instructed on follow up and referral plans. the need for transfer, Demonstrated understanding of instructions, follow-up care, medications, 07:29 Patient left the ED. bm8 NIH Stroke Scale - NIH Stroke Score Date: 05/19/2025 Time: 05:22 Total Score = 1 10. Dysarthria (speech clarity - read or repeat words) - 0(Normal) 11. Extinction and Inattention (visual/tactile/auditory/spatial/personal) - 0(No abnormality) 1a. Level of Consciousness (LOC) - 0(Alert) 1b. Level of Consciousness (LOC) (Month \T\ Age) - 0(Both) 1c. LOC Commands (Open \T\ Closes Eyes/Filler And Trimmer) - 0(Both) 2. Best Gaze (Lateral Gaze Paresis) - 0(Normal) 3. Visual Field Loss - 0(No visual loss) 4. Facial Palsy - 0(Normal) 5a. Left Arm: Motor (10-second hold) - 0(No drift) 5b. Right Arm: Motor (10-second hold) - 0(No drift) 6a. Left Leg: Motor (5-second hold - always test supine) - 0(No drift) 6b. Right Leg: Motor (5-second hold - always test supine) - 0(No drift) 7. Limb Ataxia (finger/nose \T\ heel/cheung - test with eyes open) - 0(Absent) 8. Sensory Loss (pinprick arms/legs/face) - 1(Mild to moderate loss) 9. Best Language: Aphasia (description/naming/reading) - 0(No aphasia) Initials: [facility] NIH Stroke Scale - NIH Stroke Score Date: 05/19/2025 Time: 05:36 Total Score = 2 10. Dysarthria (speech clarity - read or repeat words) - 0(Normal) 11. Extinction and Inattention (visual/tactile/auditory/spatial/personal) - 0(No abnormality) 1a. Level of Consciousness (LOC) - 0(Alert) 1b. Level of Consciousness (LOC) (Month \T\ Age) - 0(Both) 1c. LOC Commands (Open \T\ Closes Eyes/Filler And Trimmer) - 0(Both) 2. Best Gaze (Lateral Gaze Paresis) - 0(Normal) 3. Visual Field Loss - 0(No visual loss) 4. Facial Palsy - 0(Normal) 5a. Left Arm: Motor (10-second hold) - 1(Drift) 5b. Right Arm: Motor (10-second hold) - 0(No drift) 6a. Left Leg: Motor (5-second hold - always test supine) - 1(Drift) 6b. Right Leg: Motor (5-second hold - always test supine) - 0(No drift) 7. Limb Ataxia (finger/nose \T\ heel/cheung - test with eyes open) - 0(Absent) 8. Sensory Loss (pinprick arms/legs/face) - 0(Normal) 9. Best Language: Aphasia (description/naming/reading) - 0(No aphasia) Initials: rn NIH Stroke Scale - NIH Stroke Score Date: 05/19/2025 Time: 06:30 Total Score = 0 10. Dysarthria (speech clarity - read or repeat words) - 0(Normal) 11. Extinction and Inattention (visual/tactile/auditory/spatial/personal) - 0(No abnormality) 1a. Level of Consciousness (LOC) - 0(Alert) 1b. Level of Consciousness (LOC) (Month \T\ Age) - 0(Both) 1c. LOC Commands (Open \T\ Closes Eyes/Filler And Trimmer) - 0(Both) 2. Best Gaze (Lateral Gaze Paresis) - 0(Normal) 3. Visual Field Loss - 0(No visual loss) 4. Facial Palsy - 0(Normal) 5a. Left Arm: Motor (10-second hold) - 0(No drift) 5b. Right Arm: Motor (10-second hold) - 0(No drift) 6a. Left Leg: Motor (5-second hold - always test supine) - 0(No drift) 6b. Right Leg: Motor (5-second hold - always test supine) - 0(No drift) 7. Limb Ataxia (finger/nose \T\ heel/cheung - test with eyes open) - 0(Absent) 8. Sensory Loss (pinprick arms/legs/face) - 0(Normal) 9. Best Language: Aphasia (description/naming/reading) - 0(No aphasia) Initials: bm8 NIH Stroke Scale - NIH Stroke Score Date: 05/19/2025 Time: 06:45 Total Score = 0 10. Dysarthria (speech clarity - read or repeat words) - 0(Normal) 11. Extinction and Inattention (visual/tactile/auditory/spatial/personal) - 0(No abnormality) 1a. Level of Consciousness (LOC) - 0(Alert) 1b. Level of Consciousness (LOC) (Month \T\ Age) - 0(Both) 1c. LOC Commands (Open \T\ Closes Eyes/Filler And Trimmer) - 0(Both) 2. Best Gaze (Lateral Gaze Paresis) - 0(Normal) 3. Visual Field Loss - 0(No visual loss) 4. Facial Palsy - 0(Normal) 5a. Left Arm: Motor (10-second hold) - 0(No drift) 5b. Right Arm: Motor (10-second hold) - 0(No drift) 6a. Left Leg: Motor (5-second hold - always test supine) - 0(No drift) 6b. Right Leg: Motor (5-second hold - always test supine) - 0(No drift) 7. Limb Ataxia (finger/nose \T\ heel/cheung - test with eyes open) - 0(Absent) 8. Sensory Loss (pinprick arms/legs/face) - 0(Normal) 9. Best Language: Aphasia (description/naming/reading) - 0(No aphasia) Initials: bm8 NIH Stroke Scale - NIH Stroke Score Date: 05/19/2025 Time: 07:00 Total Score = 0 10. Dysarthria (speech clarity - read or repeat words) - 0(Normal) 11. Extinction and Inattention (visual/tactile/auditory/spatial/personal) - 0(No abnormality) 1a. Level of Consciousness (LOC) - 0(Alert) 1b. Level of Consciousness (LOC) (Month \T\ Age) - 0(Both) 1c. LOC Commands (Open \T\ Closes Eyes/Filler And Trimmer) - 0(Both) 2. Best Gaze (Lateral Gaze Paresis) - 0(Normal) 3. Visual Field Loss - 0(No visual loss) 4. Facial Palsy - 0(Normal) 5a. Left Arm: Motor (10-second hold) - 0(No drift) 5b. Right Arm: Motor (10-second hold) - 0(No drift) 6a. Left Leg: Motor (5-second hold - always test supine) - 0(No drift) 6b. Right Leg: Motor (5-second hold - always test supine) - 0(No drift) 7. Limb Ataxia (finger/nose \T\ heel/cheung - test with eyes open) - 0(Absent) 8. Sensory Loss (pinprick arms/legs/face) - 0(Normal) 9. Best Language: Aphasia (description/naming/reading) - 0(No aphasia) Initials: bm8 NIH Stroke Scale - NIH Stroke Score Date: 05/19/2025 Time: 07:15 Total Score = 0 10. Dysarthria (speech clarity - read or repeat words) - 0(Normal) 11. Extinction and Inattention (visual/tactile/auditory/spatial/personal) - 0(No abnormality) 1a. Level of Consciousness (LOC) - 0(Alert) 1b. Level of Consciousness (LOC) (Month \T\ Age) - 0(Both) 1c. LOC Commands (Open \T\ Closes Eyes/Filler And Trimmer) - 0(Both) 2. Best Gaze (Lateral Gaze Paresis) - 0(Normal) 3. Visual Field Loss - 0(No visual loss) 4. Facial Palsy - 0(Normal) 5a. Left Arm: Motor (10-second hold) - 0(No drift) 5b. Right Arm: Motor (10-second hold) - 0(No drift) 6a. Left Leg: Motor (5-second hold - always test supine) - 0(No drift) 6b. Right Leg: Motor (5-second hold - always test supine) - 0(No drift) 7. Limb Ataxia (finger/nose \T\ heel/cheung - test with eyes open) - 0(Absent) 8. Sensory Loss (pinprick arms/legs/face) - 0(Normal) 9. Best Language: Aphasia (description/naming/reading) - 0(No aphasia) Initials: bm8 Signatures: Dispatcher [employer] EDMS Faustino Thompson MD MD rn Prokisch, Amanda, RN RN ap3 Jessica Noel Jennifer jj6 Edith Collins RN RN vc1 Inder Eldridge RN RN bm8 Edith Collins RN vc1 Corrections: (The following items were deleted from the chart) 05:55 05:20 BP 186 / 112; Pulse 80bpm; Resp 18bpm; Pulse Ox 99%; Temp 98.5F; Pain bm8 6/10, Adult; bm8 05:57 05:52 General: Appears in no apparent distress. comfortable, Behavior is calm, bm8 cooperative, appropriate for age, bm8 05:59 05:20 BP 186 / 112; Pulse 80bpm; Resp 18bpm; Pulse Ox 99%; Temp 98.5F; Pain bm8 0/10, Adult; bm8 07:37 07:15 Reassessment: Patient appears in no apparent distress at this time. No bm8 changes from previously documented assessment. Patient and/or family updated on plan of care and expected duration. Pain level reassessed. Patient is alert, oriented x 3, equal unlabored respirations, skin warm/dry/pink. pt transferred out Patient denies pain at this time. Patient states feeling better. Patient states symptoms have improved. bm8
--- NOTE | 2025-05-19 06:35 | RAD REPORT ---
ADDENDUM #1 The negative findings were communicated with Dr. Faustino Thompson at 05/19/2025 6:03 AM CDT. Electronically signed by: Joan Travis MD 05/19/2025 06:31 AM CDT RP End of Addendum CT HEAD WITHOUT IV CONTRAST, CT HEAD ANGIOGRAPHY WITH IV CONTRAST, CT NECK ANGIOGRAPHY WITH IV CONTRA ST CLINICAL INDICATION: Stroke alert COMPARISON: None. TECHNIQUE: CT HEAD: CT images of the head were obtained without intravenous contrast. Multiplanar reformats were provided. CTA HEAD/NECK: Following intravenous contrast administration, helical CT images were obtained through the head and neck during the arterial phase. Multiplanar 3D/MIP and MPR reconstructions were provided. Dose lowering technique(s) such as automated exposure control, iterative reconstruction, mA and/or KV adjustment for patient's size was utilized for this examination. FINDINGS: CT HEAD: There is no acute intracranial hemorrhage, acute territorial infarct, mass effect, midline shift or e xtra-axial collection. Ventricles are normal in size for patient's age. No acute calvarial fracture. Paranasal sinuses, mastoid air cells and middle ear cavities are clear. Orbits are unremarkable. CTA HEAD: POSTERIOR CIRCULATION: Vertebral artery dominance: Codominant Right vertebral artery: No significant stenosis. No aneurysm. Left vertebral artery: No significant stenosis. No aneurysm. Basilar artery: No significant stenosis. No aneurysm. Posterior cerebral arteries: No significant stenosis. No aneurysm. Superior cerebellar arteries: Unremarkable ANTERIOR CIRCULATION: Right ICA: No significant stenosis. No aneurysm. Right MCA: No significant stenosis. No aneurysm. Right SHERYL: No significant stenosis. No aneurysm. Left ICA: No significant stenosis. No aneurysm. Left MCA: No significant stenosis. No aneurysm. Left SHERYL: No significant stenosis. No aneurysm. CTA NECK: Aortic arch: Aortic arch and proximal major branching vessels are not included in [id number]. Vertebral arteries: Preforaminal segments are not included in [id number]. No hemodynamically signi ficant stenosis. No aneurysm or dissection. Right CCA: No hemodynamically significant stenosis. No aneurysm or dissection. Right ICA: No hemodynamically significant stenosis. No aneurysm or dissection. Right ECA: No aneurysm or dissection. Left CCA: No hemodynamically significant stenosis. No aneurysm or dissection. Left ICA: No hemodynamically significant stenosis. No aneurysm or dissection. Left ECA: No aneurysm or dissection. Measurement of carotid stenosis is based on criteria described in the [place] Symptomatic Naik tid Endarterectomy Trial (NASCET). NASCET criteria for estimating stenosis compares the normal distal ICA diameter with the standard proximal ICA diameter. UPPER CHEST: Unremarkable. BONES: No acute or destructive osseous lesion. Status post previous cervical fusion of C5-6. SOFT TISSUES: Unremarkable. OTHER: None. IMPRESSION: 1. No acute intracranial abnormality. 2. Negative CTA of the head and neck. Electronically signed by: Joan Travis MD 05/19/2025 06:00 AM CDT RP Due to temporary technical issues with the PACS/BECC reporting system, reports are being ifrah d by the in-house radiologist without review as a courtesy to ensure prompt reporting the interpreting radiologist is fully responsible for the content of the report. Transcribed Date/Time: 05/19/2025 6:35 AM
--- NOTE | 2025-05-19 07:48 | RAD REPORT ---
EXAM: Chest Single View HISTORY: 59 years Male code stroke COMPARISON: No prior exams FINDINGS: LUNGS/PLEURA: The lungs are clear. No pleural effusions or pneumothorax. No pulmonary edema. CARDIAC/MEDIASTINUM: The cardiac silhouette is within normal limits. UPPER ABDOMEN: No significant abnormality. BONES: No acute abnormality. ACDF in the cervical spine. LINES/TUBES/OTHER: N/A IMPRESSION: No evidence of acute cardiopulmonary disease.
[2025-05-19 10:51] VITALS: TEMP 98.5
[2025-05-19 11:01] VITALS: BP 128/85; O2SAT 99
== END 2025-05-19 07:29 | disposition short-term general hospital (02) ==
LOC: ER 05:18
DX: I63.9 Cerebral infarction, unspecified (principal); R29.701 NIHSS score 1; I10 Essential (primary) hypertension
CPT/HCPCS: 96365; 92977; 93005; 85025; 80048; 36415; 85610; 82565; 82947; 85730; 84484; 70496; 70498; 70450; 71045; 99285; Q9967; J3101

== ENCOUNTER 2025-05-22 22:19 | Emergency (ER) | payer OTHER ==
--- OUTSIDE RECORDS SUMMARY | 2025-05-22 22:24 | XMS REPORT | Continuity of Care Document ---
Author Name Unknown Address [address] [place] [address] [facility] Address [address] [place] [address] Care Team Providers Care Card Grinder Name Role Phone PCP, PATIENT DOES NOT HAVE A Primary Care Physic kade Unavailable NIKIA NAILS I Attending Clinician DR ALVINA Reyez Attending Clinician Unavailable Nikia Nails MD Attending Clinician [phone] Kinsey Taylor MD Attending Clinician [phone] Sherry Monahan MD Attending Clinician [phone] Sarah Monahan MD Attending Clinician [phone] SHERRY MONAHAN Attending Clinician Unavailable Ileana Luna MD Attending Clinician [phone] ILEANA LUNA Attending Clinician Unavailable LAVONNE VALDEZ Attending Clinician Unasergei ilSUMIT Rhodes Attending Clinician Unavailable Sumit Barboza Attending Clinician [phone] Unknown, Attending Attending Clinician Unavailab le UNKNOWN, ATTENDING Attending Clinician Unavailab RICO Wilson Attending Clinician Unavailable Only, Ang Db Test Attending Clinician UnavailMaci Huff RN Attending Clinician Unavailable Doctor Unassigned, [place] Attending Clinician U SARAH Chaudhary Admitting Clinician Un available DR ALVINA HADLEY Admitting Clinician Unavailable ILEANA LUNA Admitting Clinician Unavailable Payers Payer Name Policy Type Policy Number Effective Date Expirati on Date Source 90 DEGREE BENEFITS/ENTRUST [id number] 2024 00:00:00 GENERIC COMMERCIAL [id number] 1 00:00:00 0050 [id number] 2022 00:00:00 NINETY DEGREES BENEFIT OON [id number] 2022 00:00:00 2022 00:00:00 Problems Condition Name Condition Details Condition Category Status Onset Date Resolution Date Last Treatment Date Treating Clinician Comments Source Stroke (cerebrum) Stroke (cerebrum) Disease Recurre nce 05-19 00:00: 00 [facility] Primary hypertensi on Primary hypertensi on Disease Active 2023-10 00:00: 00 [facility] Chest pain, unspecifie d type Chest pain, unspecifie d type Disease Active 2023-10 00:00: 00 [facility] Obesity (BMI 30-39.9) Obesity (BMI 30-39.9) Disease Active 2023-10 00:00: 00 [facility] No known active problems No known active problems Disease [facility] Allergies, Adverse Reactions, Alerts Allergy Name Allergy Type Status Severity Reaction(s) Onset Date Inactive Date Treating Clinician Comments Source NO KNOWN ALLERGIE S Allergy Active [facility] NO KNOWN ALLERGIE S Drug Class Active [facility] Social History Social Habit Start Date Stop Date Quantity Comments Source Sexual orientation C [facility] History of Social function 2025-05-20 00:00:00 2025-05-20 00:00:00 [facility] Alcoholic beverage intake 2025-05-20 00:00:00 2025-05-20 00:00:00 Ex-drinker (finding) [facility] Sex 2025-05-19 06:24:19 2025-05-19 06:24:19 Male (finding) [facility] Tobacco use and exposure 2025-05-19 00:00:00 2025-05-19 00:00:00 Smokeless tobacco non-user [facility] Exposure to SARS-CoV-2 (event) 2022-09-05 00:00:00 2022-09-15 14:20:00 Not sure [facility] Sex assigned at 1965 00:00:00 1965 00:00:00 [facility] Smoking Status Start Date Stop Date Source Tobacco smoking consumption unknown [facility] Never smoked tobacco [facility] Medications Ordered Medication Name Filled Medication Name Start Date Stop Date Current Medication? Ordering Clinician Indication Dosage Frequency Signature (SIG) Comments Components Source aspirin 81 MG EC tablet 05-22 00:00: 00 08-20 23:59 :00 Yes 81mg QD Take 1 tablet (81 mg total) by mouth daily for 90 days. [facility] amLODIPine (NORVASC) 5 MG tablet 05-21 13:24: 21 Yes 5mg QD Take 1 tablet (5 mg total) by mouth daily. [facility] valsartan (DIOVAN) 160 MG tablet 05-21 13:24: 21 Yes 160mg QD Take 1 tablet (160 mg total) by mouth daily. [facility] atorvastati n (LIPITOR) 80 MG tablet 05-21 00:00: 00 08-19 23:59 :00 Yes 80mg QD Take 1 tablet (80 mg total) by mouth nightly for 90 days. [facility] sulfur hexafluorid e microsphr (LUMASON) injection 5 mL 10-31 14:30: 00 10-31 14:28 :00 No [id number] 5mL 5 mL, Intravenou s, ONCE, 1 dose, On Thu10/31/24 at 0830, Routine [facility] ondansetron 4 mg disintegrat ing tablet 2021-10 00:00: 00 09-21 05:59 :00 No [id number] 4mg Take 1 tablet by mouth every 8 (eight) hours as needed for Nausea and Vomiting (N/V) for up to 5 days. [facility] Vital Signs Vital Name Observation Time Observation Value Comments S ource WEIGHT 2025-05-21 06:00:00 113.399 kg WEIGHT 2025-05-20 05:30:00 113.399 kg WEIGHT 2025-05-19 08:45:00 113.399 kg HEIGHT 2025-05-19 08:45:00 182.9 cm WEIGHT 2025-05-21 06:00:00 113.399 kg WEIGHT 2025-05-20 05:30:00 113.399 kg WEIGHT 2025-05-19 08:45:00 113.399 kg HEIGHT 2025-05-19 08:45:00 182.9 cm Systolic blood pressure 2024-09-26 15:15:00 138 mm[Hg] [facility] Diastolic blood pressure 2024-09-26 15:15:00 83 mm[Hg] [facility] Heart rate 2024-09-26 15:15:00 66 /min [facility] Body temperature 2024-09-26 15:15:00 37 Monique [facility] Respiratory rate 2024-09-26 15:15:00 17 /min [facility] Body height 2024-09-26 15:15:00 182.9 cm per pt [facility] Body weight 2024-09-26 15:15:00 121.02 kg [facility] BMI 2024-09-26 15:15:00 36.18 kg/m2 [facility] Oxygen saturation in Arterial blood by Pulse oximetry 2024-09-26 15:15:00 98 /min [facility] Systolic blood pressure 2022-09-15 20:30:00 135 mm[Hg] [facility] Diastolic blood pressure 2022-09-15 20:30:00 81 mm[Hg] [facility] Heart rate 2022-09-15 20:30:00 95 /min [facility] Body temperature 2022-09-15 20:30:00 36.78 Monique [facility] Respiratory rate 2022-09-15 20:30:00 18 /min [facility] Body height 2022-09-15 20:30:00 182.9 cm [facility] Body weight 2022-09-15 20:30:00 119.704 kg [facility] BMI 2022-09-15 20:30:00 35.79 kg/m2 [facility] Oxygen saturation in Arterial blood by Pulse oximetry 2022-09-15 20:30:00 97 /min [facility] Systolic blood pressure 2025-05-21 07:00:00 121 mm[Hg] [facility] Diastolic blood pressure 2025-05-21 07:00:00 77 mm[Hg] [facility] Heart rate 2025-05-21 07:00:00 61 /min [facility] Body temperature 2025-05-21 07:00:00 35.89 Monique [facility] Respiratory rate 2025-05-21 07:00:00 18 /min [facility] Oxygen saturation in Arterial blood by Pulse oximetry 2025-05-21 07:00:00 96 /min [facility] Body weight 2025-05-21 06:00:00 113.399 kg [facility] BMI 2025-05-21 06:00:00 33.91 kg/m2 [facility] Body height 2025-05-20 05:25:00 182.9 cm [facility] Procedures Procedure Date / Time Performed Performing Clinician Source CBC W/PLT COUNT & AUTO DIFFERENTIAL 2025-05-21 04:47:00 [facility] BASIC METABOLIC PANEL 2025-05-21 04:47:00 Alex Brown am [facility] MAGNESIUM 2025-05-21 04:47:[facility] 2025-05-21 04:47:00 Sa rae Brown [facility] CALCIUM, IONIZED 2025-05-21 04:47:00 Rand Brown [facility] CBC W/PLT COUNT & AUTO DIFFERENTIAL 2025-05-21 04:47:00 Alex Brown [facility] MR BRAIN WITHOUT IV CONTRAST 2025-05-20 10:29:[address] [facility] CBC W/PLT COUNT & AUTO DIFFERENTIAL 2025-05-20 03:32:00 Stephanie [facility] BASIC METABOLIC PANEL 2025-05-20 03:32:00 Alex Brown am [facility] MAGNESIUM 2025-05-20 03:32:00 Sa Stephanie [facility] PHOSPHORUS 2025-05-20 03:32:00 Stephanie [facility] CALCIUM, IONIZED 2025-05-20 03:32:00 [facility] W/[facility] & AUTO DIFFERENTIAL 2025-05-20 03:32:00 Stephanie [facility] US RENAL COMPLETE 2025-05-19 19:46:00 Matt Wade [facility] POCT-GLUCOSE METER 2025-05-19 14:59:00 Segundo Nails mmad [facility] BASIC METABOLIC PANEL 2025-05-19 14:56:00 Hero [facility] MAGNESIUM 2025-05-19 14:56:00 Hero Sarah [facility] PHOSPHORUS 2025-05-19 14:56:00 Hero [facility] ECG 12-LEAD 2025-05-19 14:36:57 Unknown, Hl7 Doctor [facility] ECG 12-LEAD 2025-05-19 14:36:13 Stephanie [facility] ECG 12-LEAD 2025-05-19 14:36:13 Unknown, Hl7 Doctor [facility] HIGH SENSITIVITY TROPONIN I 2025-05-19 12:54:00 Aidan Carrillo [facility] HEMOGLOBIN A1C 2025-05-19 10:16:00 Stephanie [facility] TSH/FREE T4 IF INDICATED 2025-05-19 10:16:00 Stephanie [facility] LIPID PANEL 2025-05-19 10:16:00 Stephanie [facility] Prakitty [facility] URINALYSIS WITHOUT MICROSCOPIC 2025-05-19 10:16:00 Stephanie Mayipaola Kim [facility] HB ECG ROUTINE & RHYTHM STRIP 2024-09-26 15:19:13 Ileana Luna [facility] POCT MOLECULAR FLU 2022-09-15 20:33:00 Unknown, Attend ing [facility] ASSIGNMENT OF BENEFITS 2021-05-26 23:17:17 Docto r Unassigned, [place] [facility] Plan of Care Planned Activity Planned Date Details Comments Source Encounters Start Date/Time End Date/Time Encounter Type Admission Type Attending Clinicians Care Facility Care Department Encounter ID Source 2025-05-20 09:54:47 Inpatient [facility] [id number] [facility] 2025-05-19 18:38:57 Inpatient EL MANFRED NAILSBRETTRios [facility] [id number] [facility] 2021-09-02 14:48:00 Inpatient ALVINA UPTON [facility] [id number] [facility] 2025-05-19 08:18:00 2025-05-21 13:24:00 Hospital Encounter Nikia Nails Nehal Patel Lee, Abraham B Damani, Rahul [facility] [id number] [facility] 2025-05-19 08:18:00 2025-05-21 13:24:00 Inpatient ER SHERRY MONAHAN [facility] Neurology [id number] [facility] 2025-05-19 00:00:00 2025-05-19 15:47:45 Orders Only [facility] [id number] [facility] 2025-05-19 00:00:00 2025-05-19 00:00:00 Travel [facility] [id number] [facility] 2024-11-01 00:00:00 2024-12-03 18:16:20 Patient Secure Msg [facility]ana [facility] [id number] [id number] 4.2.7.2.686 [id number] [facility] 2024-10-31 07:50:25 2024-10-31 23:59:00 Outpatient R ILEANA LUNA [facility] [id number] [facility] 2024-10-31 07:50:25 2024-10-31 23:59:00 [facility] [id number] 350.1.13.10 4.2.7.2.686 [id number] [facility] 2024-10-20 00:00:00 2024-10-20 13:19:38 [facility] [id number] 350.1.13.10 4.2.7.2.686 [id number] [facility] 2024-10-04 00:00:00 2024-10-04 09:09:22 [facility] [id number] 350.1.13.10 4.2.7.2.686 [id number] [facility] 2024-09-26 09:20:00 2024-09-26 09:31:31 Outpatient [facility] [id number] [facility] 2024-09-26 09:20:00 2024-09-26 09:31:31 Office Visit Supa [facility] BU[facility] [id number] 350.1.13.10 4.2.7.2.686 [id number] [facility] 2023-01-15 08:23:00 2023-01-15 08:23:00 Outpatient ALVINA UPTON [facility] [id number] [facility] 2023-01-13 09:12:00 2023-01-13 10:46:00 Emergency E LAVONNE VALDEZ [facility] [address] [facility] 2022-09-15 14:20:00 2022-09-15 14:58:54 Outpatient R SUMIT WINSLOW [facility] [id number] [facility] 2022-09-15 14:20:00 2022-09-15 14:40:00 Urgent Care Sumit Winslow Unknown, Attending [facility] 1..840.114 350.1.13.10 4.2.7.2.686 [id number] [facility] 2021-09-19 16:00:00 2021-09-19 16:00:00 Outpatient R UNKNOWN, ATTENDING [facility] [id number] [facility] 2021-09-19 13:15:00 2021-09-19 13:40:36 Outpatient R RICO LOPEZ [facility] [id number] [facility] 2021-09-19 13:15:00 2021-09-19 13:30:00 Laboratory Only Only, Ang Db Test Unknown, Attending [facility] 1..840.114 350.1.13.10 4.2.7.2.686 [id number] [facility] 2021-08-22 12:46:00 2021-08-22 23:59:00 Outpatient C ALVINA HADLEY [facility] [id number] [facility] 2021-05-28 00:00:00 2021-05-28 00:00:00 Letter (Out) Maci Cunningham [facility] 1..840.114 350.1.13.10 4.2.7.2.686 [id number] [facility] 2021-05-26 18:30:00 2021-05-26 18:30:00 Outpatient R UNKNOWN, ATTENDING [facility] [id number] [facility] 2021-05-26 00:00:00 2021-05-26 00:00:00 Letter (Out) Doctor Unassigned, [place] [facility] [id number] 350.1.13.10 4.2.7.2.686 [id number] [facility] 2021-05-26 00:00:00 2021-05-26 00:00:00 Orders Only Doctor Unassigned, [place] [facility] 1.2.840.114 350.1.13.10 4.2.7.2.686 [id number] [facility] Results Test Description Test Time Test Comments Results Resul t Comments Source ECG 12 lead 2025-05-05 19:13:12 Ventricular Rate 61 BPMAtrial Rate 61 BPMP-R Interval 150 msQRS Duration 84 msQ-T Interval 416 msQTC Calculation(Bazett) 418 msP [place] 46 degreesR [place] 10 degreesT [place] 4 degrees Normal sinus rhythmNormal ECGNo previous ECGs availableConfirmed by Javi Martin ([id number]) on 05/21/2025 7:13:10 PM [facility] renal complete 2025-05-05 09:23:40 TECHNIQUE: Grayscale ultrasound of the kidneys and bladder. INDICATION: flank pain. COMPARISON: None. FINDINGS: RIGHT KIDNEY: The right kidney measures 11 x 6 x 5.9 cm with a corticalthickness of 2 cm. No solid mass lesions. No hydronephrosis. Renalartery and vein are patent. LEFT KIDNEY: The left kidney measures 12.1 x 6.8 x 5.6 cm with acortical thickness of 1.7 cm. No solid mass lesions. No hydronephrosis.Renal artery and vein are patent. A left interpolar anechoic renallesion measures 2.3 cm and has two thin internal septations, Bosniak 2.No follow-up imaging is recommended for this finding. BLADDER: The urinary bladder volume is 178 mL. The liver is increased in echogenicity. [facility] RENAL COMPLETE 2025-05-05 09:23:40 [facility] : 1965 Sex: M TECHNIQU E: Grayscale ultrasound of the kidneys and bladder.INDICATION: flank pain.COMPARISON: None.FINDINGS:RIGHT KIDNEY: The right kidney measures 11 x 6 x 5.9 cm with a corticalthickness of 2 cm. No solid mass lesions. No hydronephrosis. Renalartery and vein are patent.LEFT KIDNEY: The left kidney measures 12.1 x 6.8 x 5.6 cm with acortical thickness of 1.7 cm. No solid mass lesions. No hydronephrosis.Renal artery and vein are patent. A left interpolar anechoic renallesion measures 2.3 cm and has two thin internal septations, Bosniak 2.No follow-up imaging is recommended for this finding.BLADDER: The urinary bladder volume is 178 mL.The liver is increased in echogenicity.IMPRESSION :1. The ultrasound appearance of the kidneys is normal. Nohydronephrosis2. The increased echogenicity of the liver is concerning for diffusefatty infiltration.Electronic ally Signed By: Adan Jin05/21/2025 09:25 CDTWorkstation Name: [id number] BASIC METABOLIC [id number] 05:30:55* Test Item Value Reference Range Interpretation Comme nts SODIUM (BEAKER) (test code = 381) 134 meq/L 136-145 L POTASSIUM (BEAKER) (test code = 379) 4.0 meq/L 3.5-5.1 CHLORIDE (BEAKER) (test code = 382) 107 meq/L 98-107 CO2 (BEAKER) (test code = 355) 24 meq/L 22-29 BLOOD UREA NITROGEN (BEAKER) (test code = 354) 12 mg/dL 8-26 CREATININE (BEAKER) (test code = 358) 0.92 mg/dL 0.60-1.30 GLUCOSE RANDOM (BEAKER) (test code = 652) 106 mg/dL 70-105 H CALCIUM (BEAKER) (test code = 697) 8.2 mg/dL 8.4-10.2 L EGFR (BEAKER) (test code = 1092) 98 mL/min/1.73 sq m Interpretation of eG FR values Stage Description Result G1 Normal or high >=90 G2 Mildly decreased 60-89 G3a Mildly to moderately 45-59 G3b Moderately to severely 30-44 G4 Severly decreased 15-29 G5 Kidney failure <15Reported eGFR is based on the CKD-EPI 2020 equation that does not use a race coefficientEstimated GFR is not as accurate as Creatinine Clearance in predicting glomerular filtration rate. Estimated GFR is not applicable for dialysis patients [id number] 05:30:55* Test Item Value Reference Range Interpretation Comme nts MAGNESIUM (BEAKER) (test cod e = 627) 2.2 mg/dL 1.6-2.6 CBC W/PLT COUNT & AUTO [id number] 05:10:05* Test Item Value Reference Range Interpretation Comme nts WHITE BLOOD CELL COUNT (BEAK ER) (test code = 775) 7.1 K/ L 3.5-10.5 RED BLOOD CELL COUNT (BEAKER ) (test code = 761) 5.31 M/ L 4.63-6.08 HEMOGLOBIN (BEAKER) (test co de = 410) 16.0 GM/DL 13.7-17.5 HEMATOCRIT (BEAKER) (test co de = 411) 46.3 % 40.1-51.0 MEAN CORPUSCULAR VOLUME (JACOB KER) (test code = 753) 87 fL 79-92 MEAN CORPUSCULAR HEMOGLOBIN (BEAKER) (test code = 751) 30.1 pg 25.7-32.2 MEAN CORPUSCULAR HEMOGLOBIN CONC (BEAKER) (test code = 752) 34.6 GM/DL 32.3-36.5 RED CELL DISTRIBUTION WIDTH (BEAKER) (test code = 412) 12.3 % 11.6-14.4 PLATELET COUNT (BEAKER) (jerrod t code = 756) 181 K/CU MM 150-450 MEAN PLATELET VOLUME (BEAKER ) (test code = 754) 10.3 fL 9.4-12.4 NUCLEATED RED BLOOD CELLS (BEAKER) (test code = 413) 0 /100 WBC 0-0 NEUTROPHILS RELATIVE PERCENT (BEAKER) (test code = 429) 61 % LYMPHOCYTES RELATIVE PERCENT (BEAKER) (test code = 430) 25 % MONOCYTES RELATIVE PERCENT (BEAKER) (test code = 431) 10 % EOSINOPHILS RELATIVE PERCENT (BEAKER) (test code = 432) 2 % BASOPHILS RELATIVE PERCENT (BEAKER) (test code = 437) 1 % NEUTROPHILS ABSOLUTE COUNT (BEAKER) (test code = 670) 4.35 K/ L 1.78-5.38 LYMPHOCYTES ABSOLUTE COUNT (BEAKER) (test code = 414) 1.77 K/ L 1.32-3.57 MONOCYTES ABSOLUTE COUNT (BE MIGNON) (test code = 415) 0.71 K/ L 0.30-0.82 EOSINOPHILS ABSOLUTE COUNT (BEAKER) (test code = 416) 0.17 K/ L 0.04-0.54 BASOPHILS ABSOLUTE COUNT (BE MIGNON) (test code = 417) 0.06 K/ L 0.01-0.08 IMMATURE GRANULOCYTES-RELATI VE PERCENT (BEAKER) (test code = 2801) 0.60 % 0.00-1.00 CALCIUM, [id number] 05:06:44* Test Item Value Reference Range Interpretation Comme nts CALCIUM IONIZED (BEAKER) (te st code = 698) 1.15 mmol/L 1.12-1.27 PH, BLOOD (BEAKER) (test cod e = 1810) 7.39 MR Brain Without IV [id number] 11:13:10MR BRAIN WITHOUT IV CONTRAST INDICATION: Stroke, follow up TECHNIQUE: Multiplanar, multisequence MRimaging of the brain wasobtained. COMPARISON: None FINDINGS:Brain parenchyma is normal in morphology. Midline structures arenormally developed. No restricted diffusion to suggest recent ischemicinsult. No abnormal susceptibility. Scattered T2/FLAIR hyperintense foci within the periventricular andsubcortical white matter are nonspecific, however, statisticallyrepresent chronic microvascular ischemic changes. No hydrocephalus. Orbits are within normal limits. No obstructive [facility]anasal sinus disease[facility] 2025-05-20 11:13:10 [facility]AN [facility]YES : 1965 Sex: MMR BRAIN WITHOUT IV CONTRASTINDICATION: Stroke, follow upTECHNIQUE: Multiplanar, multisequence MR imaging of the brain wasobtained.COMPARISON: NoneFINDINGS:Brain parenchyma is normal in morphology. Midline structures arenormally developed. No restricted diffusion to suggest recent ischemicinsult. No abnormal susceptibility.Scattered T2/FLAIR hyperintense foci within the periventricularandsubcortical white matter are nonspecific, however, statisticallyrepresent chronic microvascular i schemic changes.No hydrocephalus.Orbits are within normal limits.No obstructive paranasal sinus disease.IMPRESSION:No acute intracranial findings.Electronically Signed By: Suki Rodriguez05/20/2025 11:51 CDTWorkstation Name: [id number] 04:33:10* Test Item Value Reference Range Interpretation Comme nts MAGNESIUM (BEAKER) (test code = 627) 2.1 mg/dL 1.6-2.6 Specimen sligh tly hemolyzed [id number] 04:33:10* Test Item Value Reference Range Interpretation Comme nts PHOSPHORUS (BEAKER) (test code = 604) 3.8 mg/dL 2.5-4.5 Specimen sligh tly hemolyzed BASIC METABOLIC [id number] 04:33:10* Test Item Value Reference Range Interpretation Comme nts SODIUM (BEAKER) (test code = 381) 132 meq/L 136-145 L POTASSIUM (BEAKER) (test code = 379) 4.4 meq/L 3.5-5.1 Specimen slightl y hemolyzed CHLORIDE (BEAKER) (test code = 382) 103 meq/L 98-107 CO2 (BEAKER) (test code = 355) 22 meq/L 22-29 BLOOD UREA NITROGEN (BEAKER) (test code = 354) 14 mg/dL 8-26 CREATININE (BEAKER) (test code = 358) 0.98 mg/dL 0.60-1.30 Specimen slightl y hemolyzed GLUCOSE RANDOM (BEAKER) (test code = 652) 106 mg/dL 70-105 H CALCIUM (BEAKER) (test code = 697) 8.4 mg/dL 8.4-10.2 EGFR (BEAKER) (test code = 1092) 91 mL/min/1.73 sq m Interpretation of eG FR values Stage Description Result G1 Normal or high >=90 G2 Mildly decreased 60-89 G3a Mildly to moderately 45-59 G3b Moderately to severely 30-44 G4 Severly decreased 15-29 G5 Kidney failure <15Reported eGFR is based on the CKD-EPI 2020 equation that does not use a race coefficientEstimated GFR is not as accurate as Creatinine Clearance in predicting glomerular filtration rate. Estimated GFR is not applicable for dialysis patients CALCIUM, [id number] 04:28:47* Test Item Value Reference Range Interpretation Comme nts CALCIUM IONIZED (BEAKER) (te st code = 698) 1.12 mmol/L 1.12-1.27 PH, BLOOD (BEAKER) (test cod e = 1810) 7.38 CBC W/PLT COUNT & AUTO [id number] 04:18:41* Test Item Value Reference Range Interpretation Comme nts WHITE BLOOD CELL COUNT (BEAK ER) (test code = 775) 7.2 K/ L 3.5-10.5 RED BLOOD CELL COUNT (BEAKER ) (test code = 761) 5.24 M/ L 4.63-6.08 HEMOGLOBIN (BEAKER) (test co de = 410) 16.3 GM/DL 13.7-17.5 HEMATOCRIT (BEAKER) (test co de = 411) 45.8 % 40.1-51.0 MEAN CORPUSCULAR VOLUME (JACOB KER) (test code = 753) 87 fL 79-92 MEAN CORPUSCULAR HEMOGLOBIN (BEAKER) (test code = 751) 31.1 pg 25.7-32.2 MEAN CORPUSCULAR HEMOGLOBIN CONC (BEAKER) (test code = 752) 35.6 GM/DL 32.3-36.5 RED CELL DISTRIBUTION WIDTH (BEAKER) (test code = 412) 12.4 % 11.6-14.4 PLATELET COUNT (BEAKER) (jerrod t code = 756) 191 K/CU MM 150-450 MEAN PLATELET VOLUME (BEAKER ) (test code = 754) 10.7 fL 9.4-12.4 NUCLEATED RED BLOOD CELLS (BEAKER) (test code = 413) 0 /100 WBC 0-0 NEUTROPHILS RELATIVE PERCENT (BEAKER) (test code = 429) 62 % LYMPHOCYTES RELATIVE PERCENT (BEAKER) (test code = 430) 25 % MONOCYTES RELATIVE PERCENT (BEAKER) (test code = 431) 9 % EOSINOPHILS RELATIVE PERCENT (BEAKER) (test code = 432) 3 % BASOPHILS RELATIVE PERCENT (BEAKER) (test code = 437) 1 % NEUTROPHILS ABSOLUTE COUNT (BEAKER) (test code = 670) 4.45 K/ L 1.78-5.38 LYMPHOCYTES ABSOLUTE COUNT (BEAKER) (test code = 414) 1.82 K/ L 1.32-3.57 MONOCYTES ABSOLUTE COUNT (BE MIGNON) (test code = 415) 0.62 K/ L 0.30-0.82 EOSINOPHILS ABSOLUTE COUNT (BEAKER) (test code = 416) 0.19 K/ L 0.04-0.54 BASOPHILS ABSOLUTE COUNT (BE MIGNON) (test code = 417) 0.05 K/ L 0.01-0.08 IMMATURE GRANULOCYTES-RELATI VE PERCENT (BEAKER) (test code = 2801) 0.40 % 0.00-1.00 BASIC METABOLIC [id number] 15:51:52* Test Item Value Reference Range Interpretation Comme nts SODIUM (BEAKER) (test code = 381) 137 meq/L 136-145 POTASSIUM (BEAKER) (test code = 379) 3.4 meq/L 3.5-5.1 L CHLORIDE (BEAKER) (test code = 382) 109 meq/L 98-107 H CO2 (BEAKER) (test code = 355) 23 meq/L 22-29 BLOOD UREA NITROGEN (BEAKER) (test code = 354) 12 mg/dL 8-26 CREATININE (BEAKER) (test code = 358) 0.90 mg/dL 0.60-1.30 GLUCOSE RANDOM (BEAKER) (test code = 652) 83 mg/dL 70-105 CALCIUM (BEAKER) (test code = 697) 7.4 mg/dL 8.4-10.2 L EGFR (BEAKER) (test code = 1092) 101 mL/min/1.73 sq m Interpretation of eG FR values Stage Description Result G1 Normal or high >=90 G2 Mildly decreased 60-89 G3a Mildly to moderately 45-59 G3b Moderately to severely 30-44 G4 Severly decreased 15-29 G5 Kidney failure <15Reported eGFR is based on the CKD-EPI 2020 equation that does not use a race coefficientEstimated GFR is not as accurate as Creatinine Clearance in predicting glomerular filtration rate. Estimated GFR is not applicable for dialysis patients [id number] 15:49:21* Test Item Value Reference Range Interpretation Comme nts MAGNESIUM (BEAKER) (test cod e = 627) 1.9 mg/dL 1.6-2.6 [id number] 15:49:21* Test Item Value Reference Range Interpretation Comme nts PHOSPHORUS (BEAKER) (test co de = 604) 3.2 mg/dL 2.5-4.5 POC-Glucose [id number] 15:10:12* Test Item Value Reference Range Interpretation Comme nts POC-Glucose Meter (test code = 1538) 89 mg/dL 70-110 : TESTED AT [facility] [address] [facility], [address]: Body Shop Manager/Trimmer Buffing Wheel ID = [id number] for GARRY EBLL Lab Interpretation (test code = 14684-4) Normal [facility] [id number] 15:10:12* Test Item Value Reference Range Interpretation Comme nts POC-GLUCOSE METER (BEAKER) (test code = 1538) 89 mg/dL 70-110 : TESTED AT [facility] [address] [facility], [address]: Body Shop Manager/Trimmer Buffing Wheel ID = [id number] for GARRY BELL HIGH SENSITIVITY TROPONIN [id number] 13:48:00* Test Item Value Reference Range Interpretation Comme nts HIGH SENSITIVITY TROPONIN I (test code = 1469799) < pg/ml <35 The [facility] High Sensitivity Troponin-I results should be used in conjunction with other diagnostic information such as ECG, clinical observations and information, and patient symptoms to aid in the diagnosis of UT.HEMOGLOBIN A1C 2025-05-19 12:06:38* Test Item Value Reference Range Interpretation Comme [facility] HEMOGLOBIN A1C ELECTROPHORESIS (AFSHIN) (test code = 3811) 5.5 % See_Comment [Automated me ssage] The system which generated this result transmitted reference range: <=5.6%. The reference range was not used to interpret this result as normal/abnormal. "The A1c is measured using a NGSP-certified method. HbA1c value equal to or greater than 6.5% as the diagnosis cutoff for diabetes. An HbA1c value of 5.7- 6.4% indicates increased risk for diabetes (prediabetes)."Body Shop Manager ID - ADM TSH/FREE T4 IF [id number] 11:12:19* Test Item Value Reference Range Interpretation Comme [facility] THYROID STIMULATING HORMONE (AFSHIN) (test code = 772) 1.261 uIU/mL 0.350-4.940 LIPID [id number] 10:51:36* Test Item Value Reference Range Interpretation Comme [facility] TRIGLYCERIDES (AFSHIN) (test code = 540) 107 mg/dL Specimen sligh tly hemolyzed CHOLESTEROL (BEAKER) (test code = 631) 170 mg/dL Specimen sligh tly hemolyzed HDL CHOLESTEROL (BEAKER) (test code = 976) 34 mg/dL LDL CHOLESTEROL CALCULATED (BEAKER) (test code = 633) 115 mg/dL Triglyceride Reference Range: Low Risk <150 Borderline 150-199 High Risk 200-499 Very High Risk >=500Cholesterol Reference Range: Low Risk <200 Borderline 200-239 High Risk >240HDL Cholesterol Reference Range: Low Risk >=60 High Risk <40LDL Cholesterol Reference Range: Optimal <100 Near Optimal 100-129 Borderline 130-159 High 160-189 Very High >=190Urinalysis without [id number] 10:46:09* Test Item Value Reference Range Interpretation Comme nts Color, UA (test code = 5778-6) Light Yellow Clarity, UA (test code = 5767-9) Clear Specific Reading, UA (test code = 5811-5) 1.037 1.001-1.035 H pH, UA (test code = 5803-2) 7 5.0-8.0 Protein, UA (test code = 18800-8) Negative Negative Glucose, UA (test code = 365) Negative Negative Ketones, UA (test code = 2514-8) Negative Negative Bilirubin, UA (test code = 41546-1) Negative Negative Blood, UA (test code = 25759-6) Negative Negative Nitrite, UA (test code = 5802-4) Negative Negative Leukocytes, UA (test code = 5799-2) Negative Negative Urobilinogen, UA (test code = 04073-1) 0.2 0.2-1.0 Specimen Source (test code = 2795) PAULINE (test code = PAULINE) Body Shop Manager ID - [auto] Lab Interpretation (test code = 19344-0) Abnormal [facility] [id number] 10:46:09* Test Item Value Reference Range Interpretation Comme nts COLOR (BEAKER) (test code = 470) Light Yellow CLARITY (BEAKER) (test code = 469) Clear SPECIFIC GRAVITY UA (BEAKER) (test code = 468) 1.037 1.001-1.035 H PH UA (BEAKER) (test code = 467) 7.0 5.0-8.0 PROTEIN UA (BEAKER) (test co de = 464) Negative Negative GLUCOSE UA (BEAKER) (test co de = 365) Negative Negative KETONES UA (BEAKER) (test co de = 371) Negative Negative BILIRUBIN UA (BEAKER) (test code = 462) Negative Negative BLOOD UA (BEAKER) (test code = 461) Negative Negative NITRITE UA (BEAKER) (test co de = 465) Negative Negative LEUKOCYTE ESTERASE UA (BEAKE R) (test code = 466) Negative Negative UROBILINOGEN UA (BEAKER) (te st code = 463) 0.2 0.2-1.0 SOURCE(BEAKER) (test code = 2795) Body Shop Manager ID - [auto]POCT MOLECULAR [id number] 20:44:25* Test Item Value Reference Range Interpretation Comme nts POCT Molecular FluA (test co de = 69652-5) Negative Negative POCT Molecular FluB (test co de = 39935-4) Negative Negative Lab Interpretation (test cod e = 64681-9) Normal [facility] Notes Date/Time Note Provider Source 2024-10-20 12:57:18 Brian Reyes is a 59 year old male Kelsie with medical helpline calling to inform clinic that no auth is needed for the echo Ph [phone] H MACHINE HAND Claudia Finn [facility] 2024-10-04 09:08:46 Called and left a voicemail for patient to contact us for scheduling TTE H MACHINE HAND Valerie Bhat [facility] 2024-10-04 09:05:37 Pt states he is ready to schedule his echo. Dr. Luna has placed orders. Will forward to PSS to assist pt with scheduling echo. ИРИНА Conner RN [facility] 2024-10-04 08:43:29 Ordered [facility] 2024-10-04 08:16:19 Brian Reyes is a 59 year old male Patient would like to go ahead and have orders placed for echo now - Please advise H MACHINE HAND Beba Nelson [facility] 2024-09-26 09:20:00 Addended by: ILEANA LUNA MD on: 10/04/2024 08:43 AM Modules accepted: Orders [facility]
[2025-05-22] MEDS ORDERED: FAMOTIDINE 20 MG/2 ML VIAL IV ONE (22:51)
[2025-05-22] MEDS ORDERED: NA CHLORIDE 0.9% 1,000 ML ONE (22:52)
[2025-05-22 23:18] LABS: Absolute Lymphocytes (CBC) 1.4 K/uL (0.7-4.9); Hematocrit 45.3 % (39.6-49.0); Hemoglobin 15.6 g/dL (13.6-17.9); MCH 29.9 pg (27.0-35.0); MCHC 34.4 g/dL (32.0-36.0); MCV 86.9 fL (80-100); MPV 8.9 fL (7.6-11.3); Nucleated RBC Absolute Count 0.0 (0-0); Nucleated Red Blood Cells % 0.3 % (0-0); RBC Red Blood Cell Count 5.21 M/uL (4.33-5.43); White Blood Count 11.50 thou/uL (4.3-10.9)
[2025-05-22 23:24] LABS: ALT/SGPT 157.0 U/L (16-61); AST/SGOT 193.0 U/L (15-37); Albumin 3.6 g/dL (3.4-5.0); Alkaline Phosphatase 85.0 U/L (45-117); Anion Gap 11.7 mEq/L (5.0-15.0); BUN Blood Urea Nitrogen 21.0 mg/dL (7-18); Glucose Level 125.0 mg/dL (74-106); Potassium 3.7 mEq/L (3.5-5.1)
[2025-05-22 23:25] LABS: Albumin/Globulin Ratio 1.1 (1.1-1.8); Globulin 3.2 g/dL (2.3-3.5); Lipase 63.0 U/L (13-75)
--- NOTE | 2025-05-23 00:44 | EDPHYS ---
Physician Documentation [facility] Name: Brian Ivory Age: 59 yrs Sex: Male : 1965 Arrival Date: 05/22/2025 Time: 22:19 Bed 17 Private MD: ED Physician Dominick Dominguez HPI: 05/22 22:33 This 59 yrs old Male presents to ER via Unassigned with complaints of Abdominal Pain, kb Epigastric Pain. 22:33 Pt is a 59 year old male who presents for RUQ pain that started 1-2 weeks ago. States kb the pain got worse after eating today. Denies n/v/d. . Historical: - Home Meds: 22:33 amlodipine-valsartan oral 1 tab daily [Active]; kd3 - PMHx: 22:33 Hypertensive disorder; kd3 - Immunization history:: Adult Immunizations up to date. - Infectious Disease History:: Denies. - Social history:: Smoking status: Patient denies any tobacco usage or history of. ROS: 22:32 Constitutional: As per HPI kb Exam: 22:32 Constitutional: This is a well developed, well nourished patient who is awake, alert, kb and in no acute distress. Head/Face: Normocephalic, atraumatic. ENT: Moist Mucous membranes Cardiovascular: Regular rate Respiratory: Respirations even and unlabored. No increased work of breathing. Talking in full sentences Abdomen/GI: Soft, non-tender. No distention Skin: Warm, dry with normal turgor. Normal color. MS/ Extremity: Pulses equal, no cyanosis. Neurovascular intact. Full, normal range of motion. Neuro: Awake and alert, GCS 15, oriented to person, place, time, and situation. Vital Signs: 22:32 BP 147 / 81; Pulse 65; Resp 18; Temp 98(O); Pulse Ox 99% on R/A; Weight 113.4 kg; kd3 Height 6 ft. 0 in. ; 23:10 BP 137 / 84; Pulse 69; Resp 18; Pulse Ox 98% on R/A; kd3 23:58 BP 140 / 89; Pulse 64; Resp 18; Pulse Ox 98% on R/A; kd3 22:32 Body Mass Index 33.91 (113.40 kg, 182.88 cm) kd3 MDM: 22:23 Medical Screening Exam initiated kb 22:32 Differential diagnosis: cholecystitis, Cholelithiasis, gastritis, gastroesophageal kb reflux disease, non-specific abd pain, pancreatitis. Data reviewed: vital signs, nurses notes. Historians other than the Patient: Spouse/Significant Other: . 05/23 00:42 Consideration of Admission/Observation Escalation of care including kb admission/observation considered. admission/transfer considered, but discussed with Dr Padron who recommends outpatient follow up with GI. Counseling: I had a detailed discussion with the patient and/or guardian regarding the historical points, exam findings, and any diagnostic results supporting the discharge/admit diagnosis, lab results, radiology results, the need for outpatient follow up, a general surgeon, a gate supervisor, to return to the emergency department if symptoms worsen or persist or if there are any questions or concerns that arise at home. ED course: Discussed all results with pt and . Discussed need for follow up with GI. All in agreement with outpatient follow up. Pain controlled at this time. Discussed diet control. 05/22 22:28 Order name: CBC with Diff; Complete Time: 23:34 kb 05/22 22:28 Order name: CMP; Complete Time: 23:33 kb 05/22 22:28 Order name: Lipase; Complete Time: 23:33 kb 05/22 22:28 Order name: Abdomen Limited US kb 05/22 22:28 Order name: IV Saline Lock; Complete Time: 22:57 kb 05/22 22:28 Order name: Labs collected and sent; Complete Time: 22:57 kb Administered Medications: 05/22 23:06 Drug: Famotidine IVP 20 mg IVP once; dilute with 10 mL 0.9% NaCl; give over 2 minutes kd3 Route: IVP; Site: right hand; 05/23 00:57 Follow up: Response: No adverse reaction kd3 05/22 23:06 Drug: NS 0.9% IV 1000 ml IV at 1 bolus Per protocol; to be given as a bolus over 60 kd3 minutes Route: IV; Rate: 1 bolus; Site: right hand; 05/23 00:57 Follow up: IV Status: Completed infusion; IV Intake: 1000ml kd3 00:56 Not Given (Patient Refused): ondansetron 4 mg IVP once; over 2 minutes kd3 00:56 Not Given (Patient Refused): morphineor iv 4 mg IVP once over 4 mins kd3 Disposition: 00:56 Co-signature as Attending Physician, Dominick Dominguez MD I agree with the assessment sp4 and plan of care. I reviewed the patient's care provided by the Advanced Practice Provider and agree with the diagnosis and treatment plan. Disposition Summary: 05/23/25 00:43 Discharge Ordered Notes: Location: Home kb Condition: Stable kb Diagnosis - Other cholelithiasis without obstruction kb Followup: kb - With: Emergency Department - When: As needed - Reason: Worsening of condition Followup: kb - With: Private Physician - When: 2 - 3 days - Reason: Recheck today's complaints, Continuance of care, Re-evaluation by your physician Discharge Instructions: - Discharge Summary Sheet kb - Cholelithiasis, [id number] kb Forms: - Medication Reconciliation Form kb - Antibiotic Education kb - Prescription Opioid Use kb - Patient Portal Instructions kb - Leadership Thank You Letter kb - Work release form kd3 Prescriptions: - Zofran 4 mg Oral tablet - take 1 tablet ORAL route every 6 hours As needed; 12 tablet; Refills: 0, kb Product Selection Permitted - dicyclomine 20 mg Oral tablet - take 1 tablet ORAL route 4 times per day As needed; 20 tablet; Refills: 0, kb Product Selection Permitted Signatures: Dispatcher [employer] Bijal Toussaint FNP-C FNP-Ckb Doucette, Kyli, RN RN kd3 Dominick Dominguez MD MD sp4
--- NOTE | 2025-05-23 00:44 | ER ---
Nurse's Notes [facility] Name: Brian Ivory Age: 59 yrs Sex: Male : 1965 Arrival Date: 05/22/2025 Time: 22:19 Bed 17 Private MD: Diagnosis: Other cholelithiasis without obstruction Presentation: 05/22 22:32 Chief complaint: Patient states: I have had some right upper quadrant pain for about 2 kd3 weeks. It feels like a pinching under my rib cage. Coronavirus screen: Vaccine status: Patient reports being unvaccinated. Ebola Screen: No symptoms or risks identified at this time. Initial Sepsis Screen: Does the patient meet any 2 criteria? No. Patient's initial sepsis screen is negative. Does the patient have a suspected source of infection? No. Patient's initial sepsis screen is negative. Risk Assessment: Do you want to hurt yourself or someone else? Patient reports no desire to harm self or others. Onset of symptoms was May 08, 2025. 22:32 Method Of Arrival: Ambulatory kd3 22:32 Acuity: EVELIN 3 kd3 Triage Assessment: 22:33 General: Appears uncomfortable, Behavior is calm, cooperative. Pain: Complains of pain kd3 in right upper quadrant. GI: Abdomen is non-distended, obese. Historical: - Home Meds: 22:33 amlodipine-valsartan oral 1 tab daily [Active]; kd3 - PMHx: 22:33 Hypertensive disorder; kd3 - Immunization history:: Adult Immunizations up to date. - Infectious Disease History:: Denies. - Social history:: Smoking status: Patient denies any tobacco usage or history of. Screenin:34 [facility] ED Fall Risk Assessment (Adult) History of falling in the last 3 months, kd3 including since admission No falls in past 3 months (0 pts) Confusion or Disorientation No (0 pts) Intoxicated or Sedated No (0 pts) Impaired Gait No (0 pts) Mobility Assist Device Used No (0 pt) Altered Elimination No (0 pt) Score/Fall Risk Level 0 - 2 = Low Risk Oriented to surroundings. Abuse screen: Denies threats or abuse. Denies injuries from another. Nutritional screening: No deficits noted. Tuberculosis screening: No symptoms or risk factors identified. Assessment: 22:35 GI: Bowel sounds present X 4 quads. Abd is soft and non tender X 4 quads. kd3 23:11 General: Appears in no apparent distress. Behavior is calm, cooperative. Pain: kd3 Complains of pain in right upper quadrant. Neuro: Level of Consciousness is awake, alert, obeys commands, Oriented to person, place, time, situation. Cardiovascular: Patient's skin is warm and dry. Respiratory: Airway is patent Trachea midline Respiratory effort is even, unlabored, Respiratory pattern is regular, symmetrical. Vital Signs: 22:32 BP 147 / 81; Pulse 65; Resp 18; Temp 98(O); Pulse Ox 99% on R/A; Weight 113.4 kg; kd3 Height 6 ft. 0 in. ; 23:10 BP 137 / 84; Pulse 69; Resp 18; Pulse Ox 98% on R/A; kd3 23:58 BP 140 / 89; Pulse 64; Resp 18; Pulse Ox 98% on R/A; kd3 22:32 Body Mass Index 33.91 (113.40 kg, 182.88 cm) kd3 ED Course: 22:22 Patient arrived in ED. jj6 22:23 Bijal Bower FNP-C [facility]. kb 22:23 Dominick Dominguez MD is Attending Physician. kb 22:32 Bebe Beard, ROCIO is Primary Nurse. kd3 22:33 Triage completed. kd3 22:33 Arm band placed on right wrist. kd3 22:34 Patient has correct armband on for positive identification. Provided Education on: kd3 ultrasound . 22:57 CBC with Diff Sent. kd3 22:57 CMP Sent. kd3 22:57 Lipase Sent. kd3 22:57 Inserted saline lock: 20 gauge in right hand, using aseptic technique. Blood collected. kd3 Flushed with 10 mL NS. 23:12 Abdomen Limited US In Process Unspecified. EDMS 08 00:56 No provider procedures requiring assistance completed. IV discontinued, intact, kd3 bleeding controlled, No redness/swelling at site. Pressure dressing applied. Administered Medications: 05/22 23:06 Drug: Famotidine IVP 20 mg IVP once; dilute with 10 mL 0.9% NaCl; give over 2 minutes kd3 Route: IVP; Site: right hand; 05/23 00:57 Follow up: Response: No adverse reaction kd3 05/22 23:06 Drug: NS 0.9% IV 1000 ml IV at 1 bolus Per protocol; to be given as a bolus over 60 kd3 minutes Route: IV; Rate: 1 bolus; Site: right hand; 05/23 00:57 Follow up: IV Status: Completed infusion; IV Intake: 1000ml kd3 00:56 Not Given (Patient Refused): ondansetron 4 mg IVP once; over 2 minutes kd3 00:56 Not Given (Patient Refused): morphineor iv 4 mg IVP once over 4 mins kd3 Medication: 05/22 22:35 VIS not applicable for this client. kd3 Intake: 05/23 00:57 IV: 1000ml; Total: 1000ml. kd3 Outcome: 00:43 Discharge ordered by . kb 00:56 Discharged to home ambulatory, kd3 00:56 Condition: stable 00:56 Discharge instructions given to patient, family, Instructed on discharge instructions, follow up and referral plans. medication usage, Demonstrated understanding of instructions, follow-up care, medications, Prescriptions given X 2, 00:57 Patient left the ED. kd3 Signatures: Dispatcher [employer] EDMS Bijal Bower, AUTOMATIC EQUIPMENT TECHNICIAN-C AUTOMATIC EQUIPMENT TECHNICIAN-Sintia Ordaz [id number] Bebe Beard, RN RN kd3
--- NOTE | 2025-05-23 07:56 | RAD REPORT ---
INDICATION: ABD PAIN COMPARISON: No existing relevant imaging studies are available FINDINGS: Real-time grayscale and color Doppler ultrasound of the gallbladder was performed. GALLBLADDER: Gallstones and gallbladder sludge without wall thickening or pericholecystic fluid. BILE DUCTS: Common bile duct measures 5 mm. ADDITIONAL FINDINGS: None. IMPRESSION: Cholelithiasis and gallbladder sludge without other sonographic findings of acute cholecystitis. If c linical concern for acute cholecystitis remains, HIDA scan would be considered.. Electronically signed by: Ricki Owens DO 05/23/2025 12:11 AM CDT RP NR Due to temporary technical issues with the PACS/[employer] ([employer] reporting system, reports are being ifrah d by the in-house radiologist without review as a courtesy to ensure prompt reporting the interpreting radiologist is fully responsible for the content of the report. Transcribed Date/Time: 05/23/2025 7:55 AM
[2025-05-23 08:07] VITALS: TEMP 98
[2025-05-23 08:09] VITALS: O2SAT 98
[2025-05-23 08:11] VITALS: BP 140/89
== END 2025-05-23 00:57 | disposition home or self-care (01) ==
LOC: ER 22:19
DX: K80.80 Other cholelithiasis without obstruction (principal)
CPT/HCPCS: 85025; 36415; 83690; 80053; 76705; J7030